=== PATIENT | female | born 1960 | race Caucasian/White ===

== ENCOUNTER → 2016-07-22 | Outpatient (CLI) | payer BC ==
--- NOTE | 2016-07-23 07:46 | MM ---
Reason for exam: screening (asymptomatic). Last mammogram was performed 4 years and 6 months ago. History: Patient is postmenopausal. Family history of breast cancer in aunt. Physical Findings: A clinical breast exam by your physician is recommended on an annual basis and results should be correlated with mammographic findings. MG Screening Mammo w CAD Bilateral CC and MLO view(s) were taken. Prior study comparison: January 22, 2012, mammogram, performed at [facility]. January 20, 2011, mammogram, performed at [facility]. The breast tissue is extremely dense which could obscure a lesion on mammography. There is chronic nodularity bilaterally. There is no dominant lesion. No significant changes when compared with prior studies. ASSESSMENT: Benign, BI-RAD 2 RECOMMENDATION: Routine screening mammogram of both breasts in 1 year.
== END | disposition home or self-care (01) ==
LOC: RADMAMWWP 07:58
PROVIDERS: ATTEND Family Medicine
DX: Z12.31 Encounter for screening mammogram for malignant neoplasm of breast (principal)

== ENCOUNTER 2016-09-19 00:30 | Emergency (ER) | payer BC ==
[2016-09-19] MEDS ORDERED: KETOROLAC 30 MG/ML 1 ML VIAL IVP STA (00:45)
[2016-09-19] MEDS ORDERED: HYDROmorphone 1 MG/ML 1 ML SYRINGE IVP STA (00:45)
[2016-09-19] MEDS ORDERED: SODIUM CHLORIDE 0.9% 1,000 ML IV STA ×2 (00:45)
[2016-09-19] MEDS ORDERED: ONDANSETRON 4 MG/2 ML VIAL IVP STA (00:45)
[2016-09-19 01:18] LABS: Basophils % (A) 0 %; CH 30.6; CHCM 34.1; Eosinophils # (A) 0.2 k/uL (0-0.7); Eosinophils % (A) 2 %; HCT 42.5 % (34.0-46.0); HDW 2.23; HGB 14.1 gm/dL (11.4-16.0); Luc # (Auto) 0.31; Luc % (Auto) 3; Lymphocytes # (A) 3.2 k/uL (1.0-4.8); Lymphocytes % (A) 31 %; MCH 29.8 pg (25.0-35.0); MCHC 33.2 g/dL (31.0-37.0); Mean Platelet Volume 6.8; Monocytes # (A) 0.5 k/uL (0-1.0); Monocytes % (A) 4 %; Neutrophils # (A) 6.2 k/uL (1.3-7.7); Neutrophils % (A) 60 %; RBC 4.72 m/uL (3.80-5.40); RDW 12.9 % (11.5-15.5); WBC 10.3 k/uL (3.8-10.6); WBC (Perox) 10.39
[2016-09-19 01:22] LABS: ALT 29 U/L (9-52); AST 21 U/L (14-36); Alkaline Phosphatase 62 U/L (38-126); Amylase 79 U/L (30-110); Anion Gap 10 mmol/L; Blood Urea Nitrogen 22 mg/dL (7-17); Calcium 9.9 mg/dL (8.4-10.2); Carbon Dioxide 23 mmol/L (22-30); Chloride 108 mmol/L (98-107); Glucose 123 mg/dL (74-99); Non-African American GFR(MDRD) >60 (>60 ml/min/1.73 sqM); Potassium 4.3 mmol/L (3.5-5.1); Sodium 141 mmol/L (137-145); Total Bilirubin 0.9 mg/dL (0.2-1.3); Total Protein 6.8 g/dL (6.3-8.2)
--- NOTE | 2016-09-19 01:29 | XR ---
EXAM: XR Abdomen Complete, 2 or More Views CLINICAL HISTORY: Reason: abdominal pain TECHNIQUE: Frontal view of the abdomen/pelvis with upright view of the abdomen. COMPARISON: No relevant prior studies available. FINDINGS: Intraperitoneal space: No free air. Gastrointestinal tract: Unremarkable. No dilation. Bones/joints: Unremarkable. Other findings: Possible hepatomegaly. IMPRESSION: Possible hepatomegaly.
--- NOTE | 2016-09-19 01:33 | ED ---
Abdominal Pain HPI - General Chief Complaint: Abdominal Pain Stated Complaint: side pain Time Seen by Provider: 09/19/16 00:37 Source: patient Mode of arrival: wheelchair Limitations: no limitations - History of Present Illness Initial Comments: Is a 56-year-old female presents to emergency department with the chief complaint of acute onset of left flank pain this evening. Patient reports she' s had occasional pains for the past few days however it became severe this evening. Patient states that she did vomit once due to the pain. Patient states that she has no significant past medical history and surgical history. She does have high cholesterol however. Patient reports that she has been having normal urination and bowel movements. Denies any blood in her urine. Patient states she's had no recent fever or chills. Denies any chest pain or shortness of breath. Patient reports that the pain starts in the left flank and radiates towards her groin. - Related Data Previous Rx's Medication Instructions Recorded Ciprofloxacin HCl [Cipro] 500 mg PO Q12HR #10 tablet 09/19/16 HYDROcodone/APAP 10-325MG [[place] 1 tab PO Q6H PRN #15 tab 09/19/16 10-325] Ketorolac [Toradol] 10 mg PO Q6HR #12 tab 09/19/16 Allergies Allergy/AdvReac Type Severity Reaction Status Date / Time No Known Allergies Allergy Verified 09/19/16 00:35 Review of Systems ROS Statement: Those systems with pertinent positive or pertinent negative responses have been documented in the HPI. ROS Other: All systems not noted in ROS Statement are negative. Past Medical History Past Medical History: No Reported History History of Any Multi-Drug Resistant Organisms: None Reported Past Surgical History: No Surgical Hx Reported Past Psychological History: No Psychological Hx Reported Smoking Status: Former smoker Past Alcohol Use History: None Reported Past Drug Use History: Marijuana General Exam - General Exam Comments Initial Comments: This is a 56-year-old female. Patient appears to be in significant pain. Limitations: no limitations General appearance: alert, in no apparent distress Head exam: Present: atraumatic, normocephalic, normal inspection Eye exam: Present: normal appearance, PERRL, EOMI. Absent: scleral icterus, conjunctival injection, periorbital swelling ENT exam: Present: normal exam, mucous membranes moist Neck exam: Present: normal inspection. Absent: tenderness, meningismus, lymphadenopathy Respiratory exam: Present: normal lung sounds bilaterally. Absent: respiratory distress, wheezes, rales, rhonchi, stridor Cardiovascular Exam: Present: regular rate, normal rhythm, normal heart sounds. Absent: systolic murmur, diastolic murmur, rubs, gallop, clicks GI/Abdominal exam: Present: soft, tenderness (CVA tenderness.), normal bowel sounds, other (Flank pain). Absent: distended, guarding, rebound, rigid Extremities exam: Present: normal inspection, full ROM, normal capillary refill. Absent: tenderness, pedal edema, joint swelling, calf tenderness Back exam: Present: normal inspection, CVA tenderness (L) Neurological exam: Present: alert, oriented X3, CN II-XII intact Psychiatric exam: Present: normal affect, normal mood Skin exam: Present: warm, dry, intact, normal color. Absent: rash Course Vital Signs 09/19/16 09/19/16 00:33 01:45 Temperature 97.7 F Pulse Rate 65 Respiratory 20 16 Rate Blood Pressure 173/77 124/64 O2 Sat by Pulse 100 Oximetry Medical Decision Making - Medical Decision Making Is a 56-year-old female presents to emergency department with the chief complaint of acute onset of left flank pain this evening. Patient reports she' s had occasional pains for the past few days however it became severe this evening. Patient states that she did vomit once due to the pain. Patient states that she has no significant past medical history and surgical history. She does have high cholesterol however. Patient reports that she has been having normal urination and bowel movements. Denies any blood in her urine. Patient states she's had no recent fever or chills. Denies any chest pain or shortness of breath. Patient reports that the pain starts in the left flank and radiates towards her groin. His lab work was reviewed. Patient does have mildly elevated lipase. Patient' s urinalysis just shows some amount of red blood cells consistent with a kidney stone. Patient CT abdomen and pelvis without contrast for further evaluation. Patient was reevaluated and does feel much improved after pain medications. CT abdomen and pelvis shows Mild left hydronephrosis with a 2.3 mm proximal ureteral calculus. Bilateral intrarenal colliculi seen measuring up to 2.5 mm on the right. Evidence of cholelithiasis. Mild hepatomegaly. Patient is informed of these results. Urine culture will be obtained. Patient will be discharged with pain medication and antibiotics for the renal stones. Patient agrees to treatment plan will comply. Return parameters were discussed. Discussed follow-up with primary care provider as well as urologist. - Lab Data Result diagrams: 09/19/16 00:47 09/19/16 00:47 Lab Results 09/19/16 09/19/16 09/19/16 Range/Units 00:47 00:47 01:03 WBC 10.3 (3.8-10.6) k/uL RBC 4.72 (3.80-5.40) m/uL Hgb 14.1 (11.4-16.0) gm/dL Hct 42.5 (34.0-46.0) % MCV 90.0 (80.0-100.0) fL MCH 29.8 (25.0-35.0) pg MCHC 33.2 (31.0-37.0) g/dL RDW 12.9 (11.5-15.5) % Plt Count 238 (150-450) k/uL Neutrophils % 60 % Lymphocytes % 31 % Monocytes % 4 % Eosinophils % 2 % Basophils % 0 % Neutrophils # 6.2 (1.3-7.7) k/uL Lymphocytes # 3.2 (1.0-4.8) k/uL Monocytes # 0.5 (0-1.0) k/uL Eosinophils # 0.2 (0-0.7) k/uL Basophils # 0.0 (0-0.2) k/uL Sodium 141 (137-145) mmol/L Potassium 4.3 (3.5-5.1) mmol/L Chloride 108 H (98-107) mmol/L Carbon Dioxide 23 (22-30) mmol/L Anion Gap 10 mmol/L BUN 22 H (7-17) mg/dL Creatinine 0.60 (0.52-1.04) mg/dL Est GFR (MDRD) Af Amer >60 (>60 ml/min/1.73 sqM) Est GFR (MDRD) Non-Af >60 (>60 ml/min/1.73 sqM) Glucose 123 H (74-99) mg/dL Calcium 9.9 (8.4-10.2) mg/dL Total Bilirubin 0.9 (0.2-1.3) mg/dL AST 21 (14-36) U/L ALT 29 (9-52) U/L Alkaline Phosphatase 62 (38-126) U/L Total Protein 6.8 (6.3-8.2) g/dL Albumin 4.3 (3.5-5.0) g/dL Amylase 79 (30-110) U/L Lipase 324 H (23-300) U/L Urine Color Yellow Urine Appearance Cloudy H (Clear) Urine pH 5.5 (5.0-8.0) Ur Specific [place] 1.014 (1.001-1.035) Urine Protein 1+ H (Negative) Urine Glucose (UA) Negative (Negative) Urine Ketones Negative (Negative) Urine Blood Large H (Negative) Urine Nitrite Negative (Negative) Urine Bilirubin Negative (Negative) Urine Urobilinogen <2.0 (<2.0) mg/dL Ur Leukocyte Esterase Small H (Negative) Urine RBC >182 H (0-5) /hpf Urine WBC 14 H (0-5) /hpf Urine WBC Clumps Rare H (None) /hpf Ur Squamous Epith Cells 15 H (0-4) /hpf Urine Bacteria Occasional H (None) /hpf Hyaline Casts 1 (0-2) /lpf Urine Mucus Occasional H (None) /hpf - Radiology Data Radiology results: report reviewed Mild left hydronephrosis with a 2.3 mm proximal ureteral calculus. Bilateral intrarenal colliculi seen measuring up to 2.5 mm on the right. Evidence of cholelithiasis. Mild hepatomegaly. Disposition Clinical Impression: Left ureteral stone Disposition: HOME SELF-CARE Condition: Good Instructions: Ureteral Stones (ED) Additional Instructions: Patient has to rest, increase fluids. Follow-up with primary care provider and urologist. Return to emergency department if any alarming signs or symptoms occur. Take medications as prescribed. Prescriptions: Ciprofloxacin HCl [Cipro] 500 mg PO Q12HR #10 tablet HYDROcodone/APAP 10-325MG [[place] 10-325] 1 tab PO Q6H PRN #15 tab PRN Reason: Pain Ketorolac [Toradol] 10 mg PO Q6HR #12 tab Referrals: López Hamm MD [Primary Care Provider] - 1-2 days Time of Disposition: 02:33
[2016-09-19 01:36] LABS: Appearance,Urine Cloudy (Clear); Bacteria,Urine Occasional /hpf; Bilirubin,Urine Negative (Negative); Glucose,Urine (UA) Negative (Negative); Ketones,Urine Negative (Negative); Leukocyte Esterase,Urine Small (Negative); Mucus,Urine Occasional /hpf; Nitrite,Urine Negative (Negative); PH, Urine 5.5 (5.0-8.0); Particle Count 9192; Protein,Urine 1+ (Negative); RBC,Urine >182 /hpf (0-5); Specific Gravity,Urine 1.014 (1.001-1.035); Squamous Epithelial Cell,Urine 15 /hpf (0-4); UA Billing (MACRO vs. MICRO) MICRO; Urobilinogen,Urine <2.0 mg/dL (<2.0); WBC,Urine 14 /hpf (0-5)
[2016-09-19 01:46] VITALS: RESP 16
--- NOTE | 2016-09-19 02:29 | CT ---
EXAM: CT Abdomen and Pelvis Without Intravenous Contrast CLINICAL HISTORY: Reason: Pain TECHNIQUE: Axial computed tomography images of the abdomen and pelvis without intravenous contrast. CTDI is 4.6 mGy and DLP is 205.5 mGy-cm. This CT exam was performed using one or more of the following dose reduction techniques: automated exposure control, adjustment of the mA and/or kV according to patient size, and/or use of iterative reconstruction technique. Coronal and sagittal reformatted images were created and reviewed. COMPARISON: Abdominal radiograph performed earlier. Ultrasound dated 07/31/11 FINDINGS: Lower thorax: No acute findings. ABDOMEN: Liver: Mild hepatomegaly. Gallbladder and bile ducts: Cholelithiasis. Pancreas: Unremarkable. No ductal dilation. Spleen: Unremarkable. No splenomegaly. Adrenals: Unremarkable. No mass. Kidneys and ureters: Mild left hydronephrosis with a 2.3 mm proximal ureteral calculus. Bilateral intrarenal calculi are seen measuring up to 2.5 mm on the right. Stomach and bowel: Unremarkable. No obstruction. No mucosal thickening. Appendix: No findings to suggest acute appendicitis. PELVIS: Bladder: Unremarkable. No stones. Reproductive: Unremarkable as visualized. ABDOMEN and PELVIS: Intraperitoneal space: Unremarkable. No free air. No significant fluid collection. Bones/joints: Sacralization of L5. Degenerative disc bulges of L3/L4 and L4/L5. No acute fracture. No dislocation. Soft tissues: Unremarkable. Vasculature: Extensive atherosclerosis of aorta. No abdominal aortic aneurysm. Lymph nodes: Unremarkable. No enlarged lymph nodes. IMPRESSION: 1. Mild left hydronephrosis with a 2.3 mm proximal ureteral calculus. 2. Bilateral intrarenal calculi are seen measuring up to 2.5 mm on the right. 3. Cholelithiasis. 4. Mild hepatomegaly.
[2016-09-19 02:54] VITALS: BP 126/76; PULSE 71; TEMP 97
== END 2016-09-19 02:53 | disposition home or self-care (01) ==
LOC: EC 00:30
DX: N13.2 Hydronephrosis with renal and ureteral calculous obstruction (principal); K80.20 Calculus of gallbladder without cholecystitis without obstruction; R16.0 Hepatomegaly, not elsewhere classified; R74.8 Abnormal levels of other serum enzymes; E78.00 Pure hypercholesterolemia, unspecified; R11.10 Vomiting, unspecified; Z87.891 Personal history of nicotine dependence
CPT/HCPCS: 36415; 80053; 82150; 83690; 85025; 81001; 74000; 74176; 99284; 96374; 96375; 96361 ×2; J2405; J1885

== ENCOUNTER → 2018-01-25 | Outpatient (CLI) | payer BC ==
--- NOTE | 2018-01-25 10:37 | ECHOS ---
STRESS ECHOCARDIOGRAM DATE OF SERVICE: 01/25/2018 INDICATIONS: Chest pain. MEDICATIONS: Pravastatin, aspirin. BASELINE HEART RATE: 87 BASELINE BLOOD PRESSURE: 155/63 MAXIMUM HEART RATE: 153 MAXIMUM BLOOD PRESSURE: 209/68 85% MPHR: 137 100% MPHR: 161 METS: 8.7 MAXIMUM STAGE REACHED: III TOTAL EXERCISE TIME: 7 minutes 15 seconds CLINICAL INFORMATION: The patient has chest pain. Baseline heart rate 87 beats per minute. Baseline blood pressure 155/63 mmHg. Baseline ECG shows normal sinus rhythm with a 0.[address] depression in baseline. Patient exercised on Waldemar protocol for 7 minutes 15 seconds achieving a peak heart rate of 153 beats per minute. Mildly hypertensive response to exercise. Peak blood pressure 209/68 mmHg. There was no ECG evidence for ischemia. No arrhythmias were noted. Baseline 2D echo images showed normal LV size and systolic function without segmental wall motion abnormalities. At peak exercise, there was excellent augmentation to overall contractility without developing any wall motion abnormalities. At recovery, regional global LV systolic function remains normal. IMPRESSION: No ECG or echocardiographic evidence for ischemia. Mildly hypertensive response to exercise. Average exercise capacity. MMODL / IJN: [id number] /
== END | disposition home or self-care (01) ==
LOC: RADNMMAIN 09:01
PROVIDERS: ATTEND Family Medicine
DX: R07.9 Chest pain, unspecified (principal)
CPT/HCPCS: 93351

== ENCOUNTER → 2018-01-28 | Outpatient (CLI) | payer BC ==
--- NOTE | 2018-01-29 07:12 | US ---
EXAMINATION TYPE: US transvaginal DATE OF EXAM: 01/28/2018 COMPARISON: CT 2017 CLINICAL HISTORY: N95.0 Post menopausal bleeding. 1 episode of bleeding 3 weeks ago, occasional pelvi c cramping, 3, para 1, 2. TECHNIQUE: Transvaginal exam only per ordering physician. Date of LMP: 10 years ago EXAM MEASUREMENTS: Uterus: 4.7 x 2.5 x 3.8 cm Endometrial Stripe: 0.4 cm Right Ovary: not seen Left Ovary: not seen 1. Uterus: anteverted, heterogeneous with 1.4 x 1.4 x 1.6cm hypoechoic lesion posterior lower uterin e segment, possible fibroid 2. Endometrium: wnl 3. Right Ovary: not seen due to overlying peristalsing bowel 4. Left Ovary: not seen due to overlying peristalsing bowel 5. Bilateral Adnexa: wnl 6. Posterior cul-de-sac: wnl IMPRESSION: 1. Leiomyomatous change of the uterus.
== END | disposition home or self-care (01) ==
LOC: RADUSWWP 15:22
PROVIDERS: ATTEND Family Medicine
DX: R93.41 Abnormal radiologic findings on diagnostic imaging of renal pelvis, ureter, or bladder (principal); N95.0 Postmenopausal bleeding
CPT/HCPCS: 76830

== ENCOUNTER → 2018-01-28 | Outpatient (CLI) | payer BC ==
--- NOTE | 2018-02-01 09:14 | MM ---
Reason for exam: screening (asymptomatic). Last mammogram was performed 1 year and 6 months ago. History: Patient is postmenopausal. Family history of breast cancer in aunt. Took hormonal contraceptives for 30 years. Took estrogen for 1 year. Took progesterone for 1 year. Physical Findings: A clinical breast exam by your physician is recommended on an annual basis and results should be correlated with mammographic findings. MG Screening Mammo w CAD Bilateral CC and MLO view(s) were taken. Prior study comparison: July 22, 2016, bilateral MG screening mammo w CAD. January 22, 2012, mammogram, performed at [facility]. The breast tissue is extremely dense which could obscure a lesion on mammography. Focal asymmetry may be keratosis, need to check this area right lower MLO. ASSESSMENT: Incomplete: need additional imaging evaluation, BI-RAD 0 RECOMMENDATION: Special view mammogram of the right breast. If lesion persists on supplemental views, image directed ultrasound is recommended. [facility] will attempt to contact patient to return for supplemental views and ultrasound if indicated.
== END ==
LOC: RADMAMWWP 15:19
PROVIDERS: ATTEND Family Medicine
DX: Z12.31 Encounter for screening mammogram for malignant neoplasm of breast (principal)
CPT/HCPCS: 77067

== ENCOUNTER 2019-05-23 09:05 | Inpatient (IN) | payer BC ==
[2019-05-23] MEDS ORDERED: SODIUM CHLORIDE 0.9% 500 ML 500 ML IV STA (09:21)
[2019-05-23] MEDS ORDERED: MORPHINE SULFATE 4 MG/ML SYRINGE IVP STA (09:29)
[2019-05-23] MEDS ORDERED: PANTOPRAZOLE 40 MG/10 ML VIAL IVP STA (09:30)
--- NOTE | 2019-05-23 09:35 | ED ---
GI Bleed HPI - General Chief complaint: GI Bleed Stated complaint: Abdominal Pain Time Seen by Provider: 05/23/19 09:21 Source: patient Mode of arrival: wheelchair Limitations: no limitations - History of Present Illness Initial comments: 58 year female presenting today for chief complaint of lower abdominal pain bloody stool x 2 days. Patient states that she has had diarrhea vomiting chills since Thursday. She states she initially thought she had a 24-hour "flu". Patient states the symptoms persisted today she has had multiple episodes of bloody stools. Patient states it is bright red. Patient does have history of hemorrhoids. Patient denies any pain at the rectum. Patient denies any chest pain short of breath cold intolerance. Patient denies recording a fever at home. Patient denies any specific food ingestions she denies recent trauma. Patient has a history of Crohn's or ulcerative colitis. Upon arrival patient appears uncomfortable. Blood pressure stable, afebrile. - Related Data Previous Rx's Medication Instructions Recorded Ciprofloxacin HCl [Cipro] 500 mg PO Q12HR #10 tablet 09/19/16 HYDROcodone/APAP 10-325MG [[place] 1 tab PO Q6H PRN #15 tab 09/19/16 10-325] Ketorolac [Toradol] 10 mg PO Q6HR #12 tab 09/19/16 Allergies Allergy/AdvReac Type Severity Reaction Status Date / Time No Known Allergies Allergy Verified 09/19/16 00:35 Review of Systems ROS Statement: Those systems with pertinent positive or pertinent negative responses have been documented in the HPI. ROS Other: All systems not noted in ROS Statement are negative. Past Medical History Past Medical History: No Reported History History of Any Multi-Drug Resistant Organisms: None Reported Past Surgical History: No Surgical Hx Reported Past Psychological History: No Psychological Hx Reported Smoking Status: Former smoker Past Alcohol Use History: Rare Past Drug Use History: Marijuana General Exam - General Exam Comments Initial Comments: General: The patient is awake and alert, appears uncomforable but not writhing around in pain Eye: Pupils are equal, round and reactive to light, extra-ocular movements are intact. No nystagmus. There is normal conjunctiva bilaterally. No signs of icterus. Ears, nose, mouth and throat: There are moist mucous membranes and no oral lesions. Neck: The neck is supple, there is no tenderness or JVD. Cardiovascular: There is a regular rate and rhythm. No murmur, rub or gallop is appreciated. Respiratory: Lungs are clear to auscultation, respirations are non-labored, breath sounds are equal. No wheezes, stridor, rales, or rhonchi. Gastrointestinal: Soft, non-distended, diffuse tenderness to the lower aspect of the abdomen mostly midline remaining abdomen nontender without masses or organomegaly noted. There is no rebound or guarding present. Rectal: :Large external hemorrhoid at the 10 oclock position. [place]. No bright re d blood per rectum. Small amount of light brown stool. Musculoskeletal: Normal ROM, no tenderness. Strength 5/5. Sensation intact. Radial pulses equal bilaterally 2+. Neurological: A&O x 3. CN II-XII intact grossly, There are no obvious motor or sensory deficits. Coordination appears grossly intact. Speech is normal. Skin: Skin is warm and dry and no rashes or lesions are noted. Psychiatric: Cooperative, appropriate mood & affect, normal judgment. Limitations: no limitations Course Vital Signs 05/23/19 05/23/19 09:18 09:44 Temperature 98.3 F Pulse Rate 89 75 Respiratory 19 18 Rate Blood Pressure 169/84 149/86 O2 Sat by Pulse 98 98 Oximetry Medical Decision Making - Medical Decision Making 58-year-old female presenting for nausea vomiting diarrhea or bloody stools. Ongoing since Thursday. Patient hemodynamically stable hemoglobin stable no bright red blood per rectum positive. Patient has significant leukocytosis as well as elevation of lactic acid patient was given IV fluids started on Zosyn and blood cultures obtained. CT revealed diffuse inflammation of the colon different diagnosis includes infectious or inflammatory process. At this time will admit patient for GI consultation and further evaluation. Discussed case with Dr. Macedo who is agreeable to care plan and admission at this time. Discussed findings with Dr. Macedo who is agreeable to care plan and evaluated patient in person. - Lab Data Result diagrams: 05/23/19 09:30 05/23/19 09:30 Lab Results 05/23/19 05/23/19 05/23/19 Range/Units 09:30 09:30 09:30 WBC 19.5 H (3.8-10.6) k/uL RBC 5.16 (3.80-5.40) m/uL Hgb 14.5 (11.4-16.0) gm/dL Hct 45.4 (34.0-46.0) % MCV 87.9 (80.0-100.0) fL MCH 28.1 (25.0-35.0) pg MCHC 32.0 (31.0-37.0) g/dL RDW 12.8 (11.5-15.5) % Plt Count 291 (150-450) k/uL Neutrophils % 86 % Lymphocytes % 8 % Monocytes % 3 % Eosinophils % 1 % Basophils % 0 % Neutrophils # 16.8 H (1.3-7.7) k/uL Lymphocytes # 1.6 (1.0-4.8) k/uL Monocytes # 0.7 (0-1.0) k/uL Eosinophils # 0.2 (0-0.7) k/uL Basophils # 0.0 (0-0.2) k/uL APTT (22.0-30.0) sec Sodium 140 (137-145) mmol/L Potassium 4.1 (3.5-5.1) mmol/L Chloride 107 (98-107) mmol/L Carbon Dioxide 21 L (22-30) mmol/L Anion Gap 12 mmol/L BUN 24 H (7-17) mg/dL Creatinine 0.60 (0.52-1.04) mg/dL Est GFR (CKD-EPI)AfAm >90 (>60 ml/min/1.73 sqM) Est GFR (CKD-EPI)NonAf >90 (>60 ml/min/1.73 sqM) Glucose 125 H (74-99) mg/dL Plasma Lactic Acid Abdiaziz 2.2 H* (0.7-2.0) mmol/L Calcium 9.7 (8.4-10.2) mg/dL Total Bilirubin 1.2 (0.2-1.3) mg/dL AST 32 (14-36) U/L ALT 17 (4-34) U/L Alkaline Phosphatase 74 (38-126) U/L Total Protein 7.0 (6.3-8.2) g/dL Albumin 4.2 (3.5-5.0) g/dL Stool Occult Blood (Negative) Blood Type Blood Type Recheck Bld Type Recheck Status Antibody Screen Spec Expiration Date 05/23/19 05/23/19 05/23/19 Range/Units 09:30 09:30 09:30 WBC (3.8-10.6) k/uL RBC (3.80-5.40) m/uL Hgb (11.4-16.0) gm/dL Hct (34.0-46.0) % MCV (80.0-100.0) fL MCH (25.0-35.0) pg MCHC (31.0-37.0) g/dL RDW (11.5-15.5) % Plt Count (150-450) k/uL Neutrophils % % Lymphocytes % % Monocytes % % Eosinophils % % Basophils % % Neutrophils # (1.3-7.7) k/uL Lymphocytes # (1.0-4.8) k/uL Monocytes # (0-1.0) k/uL Eosinophils # (0-0.7) k/uL Basophils # (0-0.2) k/uL APTT 22.3 (22.0-30.0) sec Sodium (137-145) mmol/L Potassium (3.5-5.1) mmol/L Chloride (98-107) mmol/L Carbon Dioxide (22-30) mmol/L Anion Gap mmol/L BUN (7-17) mg/dL Creatinine (0.52-1.04) mg/dL Est GFR (CKD-EPI)AfAm (>60 ml/min/1.73 sqM) Est GFR (CKD-EPI)NonAf (>60 ml/min/1.73 sqM) Glucose (74-99) mg/dL Plasma Lactic Acid Abdiaziz (0.7-2.0) mmol/L Calcium (8.4-10.2) mg/dL Total Bilirubin (0.2-1.3) mg/dL AST (14-36) U/L ALT (4-34) U/L Alkaline Phosphatase (38-126) U/L Total Protein (6.3-8.2) g/dL Albumin (3.5-5.0) g/dL Stool Occult Blood Positive H (Negative) Blood Type O Positive Blood Type Recheck No Previous Record Bld Type Recheck Status CABO Indicated Antibody Screen NEGATIVE Spec Expiration Date 05/26/2019 - 2329 Disposition Clinical Impression: Colitis, Abdominal pain, Leukocytosis, Diarrhea, Bloody stools Disposition: ADMITTED IP TO THIS HOSP Condition: Stable Is patient prescribed a controlled substance at d/c from ED?: No Referrals: López Hamm MD [Primary Care Provider] - 1-2 days Time of Disposition: 10:46 Decision to Admit Reason: Admit from EC Decision Date: 05/23/19 Decision Time: 10:46
[2019-05-23] MEDS: SODIUM CHLORIDE 0.9% 1,000 ML IV SCH ×2 (09:40→20:45)
[2019-05-23 09:59] LABS: Basophils % (A) 0 %; Eosinophils # (A) 0.2 k/uL (0-0.7); Eosinophils % (A) 1 %; HCT 45.4 % (34.0-46.0); HGB 14.5 gm/dL (11.4-16.0); Lymphocytes # (A) 1.6 k/uL (1.0-4.8); Lymphocytes % (A) 8 %; MCH 28.1 pg (25.0-35.0); MCV 87.9 fL (80.0-100.0); Mean Platelet Volume 7.3; Monocytes # (A) 0.7 k/uL (0-1.0); Monocytes % (A) 3 %; Neutrophils # (A) 16.8 k/uL (1.3-7.7); Neutrophils % (A) 86 %; Platelet Count 291 k/uL (150-450); RBC 5.16 m/uL (3.80-5.40); RDW 12.8 % (11.5-15.5); WBC 19.5 k/uL (3.8-10.6)
[2019-05-23 10:11] LABS: ALT 17 U/L (4-34); AST 32 U/L (14-36); African American GFR (CKD) >90 (>60 ml/min/1.73 sqM); Albumin 4.2 g/dL (3.5-5.0); Alkaline Phosphatase 74 U/L (38-126); Anion Gap 12 mmol/L; Blood Urea Nitrogen 24 mg/dL (7-17); Calcium 9.7 mg/dL (8.4-10.2); Carbon Dioxide 21 mmol/L (22-30); Chloride 107 mmol/L (98-107); Glucose 125 mg/dL (74-99); Non-African American GFR(CKD) >90 (>60 ml/min/1.73 sqM); Potassium 4.1 mmol/L (3.5-5.1); Sodium 140 mmol/L (137-145); Total Bilirubin 1.2 mg/dL (0.2-1.3)
--- NOTE | 2019-05-23 10:36 | CT ---
EXAMINATION TYPE: CT abdomen pelvis w con DATE OF EXAM: 05/23/2019 COMPARISON: 09/19/2016 HISTORY: lower midline tenderness, bloody stools CT DLP: 570.4 mGycm CONTRAST: CT scan of the abdomen and pelvis is performed without Oral Contrast and with IV Contrast, patient in jected with 100 mL of Isovue 300. FINDINGS: LUNG BASES-: No visible nodule. No infiltrate. LIVER/GB: Layering gallstones noted. Heterogenous enhancement of the liver felt to reflect a degree of underlying hepatic steatosis mild compatible megaly. No space occupying hepatic lesion. Biliary tree is of normal caliber. PANCREAS: No inflammation. No distinct mass. SPLEEN: No splenic enlargement. No lesion seen. ADRENALS: No nodule. No thickening. KIDNEYS/BLADDER: Nonobstructing nephrolithiasis identified. Small renal cortical cysts evident. Urina ry bladder grossly unremarkable. BOWEL: There is contiguous wall thickening involving the colon extending from the mid transverse colo n through the sigmoid colon. The findings are likely on the basis of infectious or inflammatory colit is. Vascular causes felt to be less likely. No evidence for perforation or abscess. Normal appendix v isualized. GENITAL ORGANS: No gross abnormality. LYMPH NODES: No greater than 1cm abdominal or pelvic lymph nodes are appreciated. AORTA: No significant abnormality. OSSEOUS STRUCTURES: No significant abnormality is seen. OTHER: Small amount of free fluid seen within the pelvis. IMPRESSION: 1. Continuous wall thickening involving the colon extending from the mid transverse colon through the sigmoid colon. The findings are likely on the basis of infectious or inflammatory colitis.
[2019-05-23] MEDS ORDERED: SODIUM CHLORIDE 0.9% 1,000 ML IV ONE (10:38)
[2019-05-23] MEDS ORDERED: PIPERACILLIN-TAZOBACTAM 3.375 GM in SODIUM CHLORIDE 0.9% 100 ML IVPB STA (10:40)
[2019-05-23] MEDS ORDERED: NALOXONE 0.4 MG/ML 1 ML VIAL IV PRN (11:00)
--- NOTE | 2019-05-23 13:22 | P.HPIM ---
History of Present Illness H&P Date: 05/23/19 Chief Complaint: abd pain 58-year-old female with history of hypertension controlled without medications. Patient comes in due to acute onset abdominal pain. Started as generalized symptoms of feeling sick 2 days ago at all started at Thursday night with few episodes of diarrhea and vomiting she thought it might be related to food however yesterday on Thursday symptoms continued all day she felt very sick and tired she slept all day couldn't do anything continued to have repeated vomiting and diarrhea if she tries to drink or eat anything so she had very poor by mouth intake. This was associated with lower abdominal pain mainly in the suprapubic region rated as 10 out of 10 in severity coming in episodes lasting few minutes at a time and then eases down there is no specific aggravating or alleviating factor she never experienced anything like this before pain is not radiating. Denies any fevers or chills. Denies any coughing chest pain or trouble breathing. Denies any symptoms of upper respiratory infection. Yesterday she noticed that her bowel movement was having some streaks of blood. She denies any otherwise associated urinary symptoms. She denies any hematemesis or melena. She reports that this has never happened before. She denies any recent traveling or any unsanitary food or drink. She denies taking any antibiotics recently. In the ED her hemoglobin was stable however white count was elevated computed tomography scan suggested colitis involving the transverse and descending colon all the way to the rectum. Patient admitted for IV antibiotics IV fluid hydration and GI evaluation Review of Systems Pertinent positives as noted in HPI. All other systems were reviewed and are negative Past Medical History Past Medical History: No Reported History History of Any Multi-Drug Resistant Organisms: None Reported Past Surgical History: No Surgical Hx Reported Past Psychological History: No Psychological Hx Reported Smoking Status: Former smoker Past Alcohol Use History: Rare Past Drug Use History: Marijuana - Past Family History Father Family Medical History: No Reported History Additional Family Medical History / Comment(s): Father is healthy Mother Additional Family Medical History / Comment(s): Mother at the age of 42 yrs, pt believes from opiod addiction/ETOH abuse. Medications and Allergies Home Medications Medication Instructions Recorded Confirmed Type Multivitamins, Thera [Multivitamin 1 tab PO DAILY 05/23/19 05/23/19 History (formulary)] Pravastatin Sodium [Pravachol] 20 mg PO DAILY 05/23/19 05/23/19 History Allergies Allergy/AdvReac Type Severity Reaction Status Date / Time No Known Allergies Allergy Verified 05/23/19 10:53 Physical Exam Vitals: Vital Signs Temp Pulse Resp BP Pulse Ox 05/23/19 09:44 75 18 149/86 98 05/23/19 09:18 98.3 F 89 19 169/84 98 Intake and Output 05/22/19 05/23/19 05/23/19 22:59 06:59 14:59 Other: Weight 55.792 kg Constitutional: No acute distress, conversant, pleasant Eyes: Anicteric sclerae, moist conjunctiva, no lid-lag Pupils equal round reactive to light ENMT: NC/AT Oropharynx clear, no erythema, exudates Neck: Supple, FROM, no masses, or JVD No carotid bruits No thyromegaly Lungs: Clear to auscultation Clear to percussion Normal respiratory effort, no accessory muscle use Cardiovascular: Heart regular in rate and rhythm, No murmurs, gallops, or rubs No peripheral edema Abdominal: Soft, tenderness to palpation over the suprapubic region with voluntary guarding no rigidity no rebound tenderness. No tenderness to tapping over the costovertebral angles Abdomen moving with respiration Sluggish bowel sounds No hepatomegaly, No splenomegaly No palpable mass No abdominal wall hernia noted Skin: Normal temperature, tone, texture, turgor No induration No subcutaneous nodules No rash, lesions No ulcers Extremities: No digital cyanosis No clubbing Pedal pulses intact and symmetrical Radial pulses intact and symmetrical No calf tenderness Psychiatric: Alert and oriented to person, place and time Appropriate affect fair judgment Neuro Muscles Strength 5/5 in all 4 extremities Sensation to light touch grossly present throughout Cranial nerves II-XII grossly intact No focal sensory deficits Lymphatics: no palpable cervical or supraclavicular , or inguinal lymph nodes Results CBC & Chem 7: 05/23/19 09:30 05/23/19 09:30 Labs: Abnormal Lab Results - Last 24 Hours (Table) 05/23/19 05/23/19 05/23/19 Range/Units 09:30 09:30 09:30 WBC 19.5 H (3.8-10.6) k/uL Neutrophils # 16.8 H (1.3-7.7) k/uL Carbon Dioxide 21 L (22-30) mmol/L BUN 24 H (7-17) mg/dL Glucose 125 H (74-99) mg/dL Plasma Lactic Acid Abdiaziz 2.2 H* (0.7-2.0) mmol/L Stool Occult Blood (Negative) 05/23/19 Range/Units 09:30 WBC (3.8-10.6) k/uL Neutrophils # (1.3-7.7) k/uL Carbon Dioxide (22-30) mmol/L BUN (7-17) mg/dL Glucose (74-99) mg/dL Plasma Lactic Acid Abdiaziz (0.7-2.0) mmol/L Stool Occult Blood Positive H (Negative) Assessment and Plan Assessment: 58-year-old female with history of hypertension controlled without medications. Comes in due to 2 day history of lower abdominal pain associated with repeated nausea vomiting and diarrhea associated with streaks of blood patient was found to have colitis admitted for further workup and GI evaluation. Anticipated length of stay more than 2 midnights Plan: Acute colitis unknown underlying cause rule out infectious versus inflammatory Leukocytosis GI consultation Follow-up cultures Patient started on empiric antibiotics Supportive care IV fluid hydration with normal saline Symptomatic control of pain nausea and vomiting Nothing by mouth PPI Lactic acidosis most likely secondary to dehydration and decreased perfusion Aggressive IV fluid hydration Follow-up lactic acid level DVT prophylaxis mechanical due to GI bleeding History of hypertension controlled without medications Currently with slightly elevated blood pressure most likely secondary to pain We'll continue to monitor closely CODE STATUS: Full code Discussed with: Patient, ER Anticipated length of stay more than [address]: Home A total of 60 minutes was spent on the care of this complex patient more than 50% of the time was spent in counseling and care coordination.
[2019-05-23] MEDS: MORPHINE SULFATE 4 MG/ML SYRINGE IVP PRN ×3 (13:41→21:56)
[2019-05-23] MEDS: ONDANSETRON 4 MG/2 ML VIAL IVP PRN (16:14)
[2019-05-23] MEDS: PANTOPRAZOLE 40 MG TABLET PO SCH (17:01)
[2019-05-23] MEDS: PIPERACILLIN-TAZOBACTAM 3.375 GM in SODIUM CHLORIDE 0.9% 100 ML IVPB SCH ×2 (17:02→23:50)
--- NOTE | 2019-05-23 22:44 | CONS ---
CONSULTATION DATE OF SERVICE: May 23. REASON FOR CONSULTATION: Abdominal pain and rectal bleeding. HISTORY OF PRESENT ILLNESS: The patient is a 58-year-old pleasant white female with a history of hypertension and hypercholesteremia, came to the emergency room complaining of severe abdominal pain associated with nausea and vomiting that started on Thursday night. She threw up a few times followed by severe lower abdominal cramping pain and yesterday morning had multiple episodes of bright red blood per rectum. She had at least 10 of these episodes and came to the emergency room early this morning. She did have a CT of the abdomen and pelvis done that showed thickening of the colon involving the mid transverse colon all the way to the sigmoid colon consistent with acute colitis. She was started on empiric IV Zosyn and being admitted to the hospital for further evaluation. She never had these symptoms in the past. No fever, chills, or night sweats. No family members having similar symptoms. She denies any recent antibiotic use. Denies any recent travel history. Never had a colonoscopy in the past, but she did have a colon test that was done 2 years ago that was negative. PAST MEDICAL HISTORY: Significant for hypertension, hyperlipidemia. MEDICATIONS: At home include pravastatin and multivitamin. ALLERGIES: No known drug allergies. SOCIAL HISTORY: No smoking. No alcohol use. FAMILY HISTORY: Unremarkable. REVIEW OF SYSTEMS: CARDIOPULMONARY: No chest pain or shortness of breath. GENITOURINARY: No dysuria or hematuria. MUSCULOSKELETAL unremarkable. SKIN unremarkable. ENDOCRINE unremarkable. PSYCHIATRIC unremarkable. NEUROLOGY unremarkable. ENT/vision unremarkable. CONSTITUTIONAL: No recent weight loss. No fever, chills, night sweats. Vital signs stable. PHYSICAL EXAMINATION: Blood pressure is 150/75, pulse is 72, temperature 99.1. HEENT: Examination unremarkable, conjunctivae are pink, sclerae anicteric. Oral cavity no lesions. NECK: No JVD or lymph node enlargement. CHEST: Clear to auscultation. HEART: Regular rate and rhythm. ABDOMEN: Soft, bowel sounds are positive. No organomegaly. There was tenderness in the left side of the abdomen, mostly in the left lower quadrant suprapubic area and left upper quadrant area. The rest of the abdomen was benign. Bowel sounds are positive. EXTREMITIES: No pedal edema. SKIN no rashes. NEUROLOGIC: Alert and oriented x3. No focal deficits. LABS: Done at the time of admission to the hospital: WBC 19.5, hemoglobin 14.5, platelets normal. Basic metabolic panel is within normal limits. Lactic acid is 2.2. Stool occult blood is positive. IMPRESSION: 1. Acute onset of severe nausea and vomiting with lower abdominal pain followed by bloody diarrhea of [address] scan showing thickening of the transverse colon, descending colon and sigmoid colon consistent with acute colitis symptoms. Her symptoms are very suggestive of an acute ischemic colitis, but possibility of infectious colitis cannot be excluded. She never had these symptoms in the past. 2. Lactic acidosis secondary to acute colitis. 3. Leukocytosis. RECOMMENDATIONS: 1. Clear liquid diet. 2. Continue with empiric antibiotics. 3. Stool studies and cultures. 4. Repeat labs in the morning. 5. No plans for any endoscopy intervention during this hospitalization, but once the symptoms are better, we will consider a colonoscopy in 2-3 weeks on an outpatient basis. The plan was discussed with the patient. She is agreeable to it. Thank you for this consultation. LOPEZ / NAHOMY: [id number] /
[2019-05-24] MEDS: SODIUM CHLORIDE 0.9% 1,000 ML IV SCH ×2 (04:41→16:51)
[2019-05-24] MEDS: MORPHINE SULFATE 4 MG/ML SYRINGE IVP PRN ×5 (04:59→21:01)
[2019-05-24] MEDS: ONDANSETRON 4 MG/2 ML VIAL IVP PRN (05:02)
[2019-05-24 08:28] LABS: Basophils % (A) 0 %; Eosinophils # (A) 0.1 k/uL (0-0.7); Eosinophils % (A) 1 %; HCT 35.3 % (34.0-46.0); Lymphocytes # (A) 1.2 k/uL (1.0-4.8); Lymphocytes % (A) 10 %; MCH 29.7 pg (25.0-35.0); MCHC 32.6 g/dL (31.0-37.0); MCV 91.2 fL (80.0-100.0); Mean Platelet Volume 7.3; Monocytes # (A) 0.6 k/uL (0-1.0); Monocytes % (A) 5 %; Neutrophils # (A) 10.3 k/uL (1.3-7.7); Neutrophils % (A) 84 %; Platelet Count 184 k/uL (150-450); RBC 3.87 m/uL (3.80-5.40); WBC 12.3 k/uL (3.8-10.6)
[2019-05-24 08:33] LABS: ALT 13 U/L (4-34); AST 23 U/L (14-36); African American GFR (CKD) >90 (>60 ml/min/1.73 sqM); Albumin 2.8 g/dL (3.5-5.0); Alkaline Phosphatase 51 U/L (38-126); Anion Gap 4 mmol/L; Blood Urea Nitrogen 18 mg/dL (7-17); Calcium 8.1 mg/dL (8.4-10.2); Carbon Dioxide 23 mmol/L (22-30); Chloride 110 mmol/L (98-107); Glucose 92 mg/dL (74-99); Non-African American GFR(CKD) >90 (>60 ml/min/1.73 sqM); Sodium 137 mmol/L (137-145); Total Bilirubin 0.8 mg/dL (0.2-1.3); Total Protein 5.1 g/dL (6.3-8.2)
[2019-05-24 08:34] LABS: HGB 11.5 gm/dL (11.4-16.0)
[2019-05-24] MEDS: PANTOPRAZOLE 40 MG TABLET PO SCH ×2 (08:42→16:54)
[2019-05-24] MEDS: PIPERACILLIN-TAZOBACTAM 3.375 GM in SODIUM CHLORIDE 0.9% 100 ML IVPB SCH ×2 (08:48→16:49)
--- NOTE | 2019-05-24 09:55 | P.PN ---
Subjective Progress Note Date: 05/24/19 Principal diagnosis: follow up for colitis and GI bleeding Patient seen and examined, still reporting lower abdominal pain rated 7 out of 10 in severity responding well to painkillers. Still reporting loose bowel movements with fresh blood components. Patient hemoglobin dropped by 3 g a component of dehydration and GI bleeding. Continue to monitor hemoglobin closely Tolerating by mouth intake Objective - Vital Signs Vital signs: Vital Signs Temp 98.3 F 05/24/19 08:22 Pulse 65 05/24/19 08:22 Resp 18 05/24/19 08:22 BP 130/73 05/24/19 08:22 Pulse Ox 95 05/24/19 08:22 Intake & Output 05/23/19 05/24/19 05/24/19 18:59 06:59 18:59 Intake Total 1880 Balance 1880 Weight 55.792 kg Intake: Intake, IV Titration 1000 Amount Piperacillin-Tazobactam 3 100 .375 gm In Sodium Chloride 0.9% 100 ml @ 25 mls/hr IVPB Q8HR [facility] Rx# :[id number] Sodium Chloride 0.9% 1, 900 000 ml @ 100 mls/hr IV . Q10H [facility] Rx#:[id number] Oral 880 Other: Voiding Method Toilet # Voids 2 # Bowel Movements 2 - Exam Constitutional: vital signs stable, Not in acute distress, pleasant, conversant Lungs: Clear to auscultation bilaterally, clear to percussion, normal respiratory effort Cardiovascular: Regular rate and rhythm, no murmurs, no gallops, no rubs, no peripheral edema Gastrointestinal: Soft, tenderness to palpation mainly over the suprapubic and left lower quadrant, no palpable hepatosplenomegally, bowel sounds positive Extremities: No digital cyanosis or clubbing, peripheral pulses palpable and equal , no calf muscle tenderness Psych: Alert, oriented to place, person and time, appropriate affect, intact judgment - Labs CBC & Chem 7: 05/24/19 07:31 05/24/19 07:31 Labs: Abnormal Lab Results - Last 24 Hours (Table) 05/23/19 05/23/19 05/23/19 Range/Units 09:30 09:30 09:30 WBC 19.5 H (3.8-10.6) k/uL Neutrophils # 16.8 H (1.3-7.7) k/uL Chloride (98-107) mmol/L Carbon Dioxide 21 L (22-30) mmol/L BUN 24 H (7-17) mg/dL Glucose 125 H (74-99) mg/dL Plasma Lactic Acid Abdiaziz 2.2 H* (0.7-2.0) mmol/L Calcium (8.4-10.2) mg/dL Total Protein (6.3-8.2) g/dL Albumin (3.5-5.0) g/dL Stool Occult Blood (Negative) 05/23/19 05/24/19 05/24/19 Range/Units 09:30 07:31 07:31 WBC 12.3 H (3.8-10.6) k/uL Neutrophils # 10.3 H (1.3-7.7) k/uL Chloride 110 H (98-107) mmol/L Carbon Dioxide (22-30) mmol/L BUN 18 H (7-17) mg/dL Glucose (74-99) mg/dL Plasma Lactic Acid Abdiaziz (0.7-2.0) mmol/L Calcium 8.1 L (8.4-10.2) mg/dL Total Protein 5.1 L (6.3-8.2) g/dL Albumin 2.8 L (3.5-5.0) g/dL Stool Occult Blood Positive H (Negative) Assessment and Plan Assessment: 58-year-old female with history of hypertension controlled without medications. Comes in due to 2 day history of lower abdominal pain associated with repeated nausea vomiting and diarrhea associated with streaks of blood patient was found to have colitis admitted for further workup and GI evaluation. Anticipated length of stay more than 2 midnights 05/24 Patient seen and examined, still reporting lower abdominal pain rated 7 out of 10 in severity responding well to painkillers. Still reporting loose bowel movements with fresh blood components. Patient hemoglobin dropped by 3 g a component of rehydration and GI bleeding. Continue to monitor hemoglobin closely Tolerating by mouth intake GI recommending OP Cscope in 2-3 weeks , differential infectious or ischemic colitis Plan: Acute colitis unknown underlying cause rule out infectious versus inflammatory vs transient ischemic Leukocytosis, improving , no fever GI following Follow-up cultures continue with empiric ABx Supportive care IV fluid hydration with normal saline Symptomatic control of pain nausea and vomiting clear liquid diet, advance as tolerated PPI Lactic acidosis most likely secondary to dehydration and decreased perfusion, resolved Aggressive IV fluid hydration DVT prophylaxis mechanical due to GI bleeding History of hypertension controlled without medications Currently with slightly elevated blood pressure most likely secondary to pain blood pressure is controlled now off medications anticipated discharge in 24-48 hours to home with OP GI follow up
[2019-05-24 14:20] LABS: Basophils % (A) 0 %; Eosinophils # (A) 0.2 k/uL (0-0.7); Eosinophils % (A) 1 %; HCT 36.5 % (34.0-46.0); HGB 11.6 gm/dL (11.4-16.0); Lymphocytes # (A) 2.1 k/uL (1.0-4.8); Lymphocytes % (A) 17 %; MCH 29.2 pg (25.0-35.0); MCHC 31.9 g/dL (31.0-37.0); MCV 91.5 fL (80.0-100.0); Mean Platelet Volume 7.3; Monocytes # (A) 0.5 k/uL (0-1.0); Monocytes % (A) 4 %; Neutrophils # (A) 9.6 k/uL (1.3-7.7); Neutrophils % (A) 76 %; Platelet Count 199 k/uL (150-450); RBC 3.99 m/uL (3.80-5.40); WBC 12.7 k/uL (3.8-10.6)
--- NOTE | 2019-05-24 17:00 | PN ---
PROGRESS NOTE DATE OF SERVICE: May 24, 2019. Patient is 58-year-old pleasant white female admitted to the hospital with onset of lower abdominal pain followed by bloody diarrhea of [address] A [address] scan of the abdomen showed left-sided colitis, possible infectious versus ischemic in nature. The patient today is feeling better; she continues to have lower abdominal pain. She had 2 bloody bowel movements today but small quantity. She denies any nausea or vomiting. No fever, chills, or night sweats. She is on a clear liquid diet, tolerating well. PHYSICAL EXAMINATION: On physical examination, she appears comfortable, no apparent distress. Vital signs are stable. Blood pressure is 115/66, pulse rate 64 and temperature 98. HEENT: Examination unremarkable. Conjunctivae pink. Sclerae anicteric. Oral cavity, no lesions. NECK: No JVD or lymph node enlargement. CHEST: Clear to auscultation. HEART: Regular rate and rhythm. ABDOMEN: Soft. Bowel sounds are positive. Mild tenderness in the left lower quadrant area and in the suprapubic area, but it was soft. EXTREMITIES: No pedal edema. SKIN: No rashes. NEUROLOGIC: Alert and oriented x 3. No focal deficits. LABS: WBC 12.7, hemoglobin 11.6, platelets normal. Basic metabolic panel is within normal limits. Clostridium-difficile toxin is negative, and cultures are still pending. IMPRESSION: This lady presents to the hospital with acute onset of lower abdominal pain followed by bloody diarrhea of 2 days' duration, CT showing thickening of the left colon consistent with ischemic colitis but possibility of infectious colitis cannot be excluded. On empiric antibiotics, doing better. Her bleeding and abdominal pain are gradually improving. RECOMMENDATIONS: 1. Continue with antibiotics. 2. Await the rest of the stool studies. 3. Advance to a full liquid diet today. 4. Repeat CBC in the morning. 5. Will follow with you closely. Thank you for this consultation. MMODL / IJN: [id number] /
[2019-05-24 19:14] LABS: Basophils % (A) 0 %; Eosinophils # (A) 0.2 k/uL (0-0.7); Eosinophils % (A) 2 %; HGB 11.6 gm/dL (11.4-16.0); Lymphocytes # (A) 1.8 k/uL (1.0-4.8); Lymphocytes % (A) 14 %; MCH 29.3 pg (25.0-35.0); MCHC 32.2 g/dL (31.0-37.0); MCV 91.1 fL (80.0-100.0); Mean Platelet Volume 7.1; Monocytes # (A) 0.5 k/uL (0-1.0); Monocytes % (A) 4 %; Neutrophils % (A) 79 %; Platelet Count 198 k/uL (150-450); RBC 3.95 m/uL (3.80-5.40); WBC 12.7 k/uL (3.8-10.6)
[2019-05-25] MEDS: PIPERACILLIN-TAZOBACTAM 3.375 GM in SODIUM CHLORIDE 0.9% 100 ML IVPB SCH ×4 (00:25→23:47)
[2019-05-25] MEDS: MORPHINE SULFATE 4 MG/ML SYRINGE IVP PRN (03:08)
[2019-05-25] MEDS: SODIUM CHLORIDE 0.9% 1,000 ML IV SCH ×3 (03:09→22:10)
--- NOTE | 2019-05-25 07:52 | P.PN ---
Progress Note - Text Progress Note Date: 05/25/19 patient with colitis infectious vs inflamatory vs ischemic , GIB monitoring hgb, stable OP plans for Cscope sign off to sarita
[2019-05-25] MEDS: ONDANSETRON 4 MG/2 ML VIAL IVP PRN (08:02)
[2019-05-25] MEDS: PANTOPRAZOLE 40 MG TABLET PO SCH ×2 (08:02→16:45)
[2019-05-25 08:39] LABS: Basophils % (A) 0 %; Eosinophils # (A) 0.2 k/uL (0-0.7); Eosinophils % (A) 2 %; HCT 36.1 % (34.0-46.0); HGB 11.6 gm/dL (11.4-16.0); Lymphocytes # (A) 1.7 k/uL (1.0-4.8); Lymphocytes % (A) 16 %; MCH 29.2 pg (25.0-35.0); MCHC 32.1 g/dL (31.0-37.0); MCV 90.9 fL (80.0-100.0); Mean Platelet Volume 8.5; Monocytes # (A) 0.7 k/uL (0-1.0); Monocytes % (A) 6 %; Neutrophils # (A) 7.9 k/uL (1.3-7.7); Neutrophils % (A) 75 %; Platelet Count 167 k/uL (150-450); RBC 3.98 m/uL (3.80-5.40); RDW 12.8 % (11.5-15.5); WBC 10.5 k/uL (3.8-10.6)
[2019-05-25 09:01] LABS: African American GFR (CKD) >90 (>60 ml/min/1.73 sqM); Anion Gap 5 mmol/L; Blood Urea Nitrogen 13 mg/dL (7-17); Calcium 8.1 mg/dL (8.4-10.2); Carbon Dioxide 23 mmol/L (22-30); Chloride 108 mmol/L (98-107); Glucose 87 mg/dL (74-99); Non-African American GFR(CKD) >90 (>60 ml/min/1.73 sqM); Sodium 136 mmol/L (137-145)
[2019-05-25 09:04] LABS: Potassium 4.1 mmol/L (3.5-5.1)
[2019-05-25] MEDS ORDERED: ACETAMINOPHEN TAB 500 MG TAB PO PRN (10:28)
--- NOTE | 2019-05-25 20:56 | PN ---
PROGRESS NOTE DATE OF SERVICE: May 25, 2019 Patient is a 58-year-old pleasant white female admitted to the hospital with acute onset of lower abdominal pain followed by bloody diarrhea of 2 days duration. She is feeling much better. Abdominal pain is improving. She had 2 bowel movements today which had no blood in the stool. She remains on a full liquid diet, tolerating well. PHYSICAL EXAMINATION: Appears comfortable, no apparent distress. Vital signs stable. Blood pressure 161/73, pulse rate 61, temperature 98.1. HEENT examination unremarkable. Conjunctivae pink. Sclerae anicteric. Oral cavity no lesions. Neck no JVD or lymph node enlargement. Chest was clear to auscultation. HEART: Regular rate and rhythm. ABDOMEN: Soft, it was very minimal tenderness in the left lower quadrant area and suprapubic area. EXTREMITIES: No pedal edema. SKIN: No rashes. NEUROLOGIC: Alert and oriented x3. No focal deficits. LABS: Today WBC 10.5, hemoglobin 11.6, platelets normal. Basic metabolic panel is within normal limits. IMPRESSION: Acute onset of lower abdominal pain followed by bloody diarrhea and CT scan showing evidence of left-sided colitis all consistent with acute ischemic colitis versus infectious etiology. The patient doing much better. Abdominal pain is improving and rectal bleeding has completely subsided. She remains on Zosyn. Stool studies so far have been negative. RECOMMENDATIONS: 1. Advance to full liquid diet today and tomorrow to a low-fiber diet. 2. If the symptoms improve and she has no further bleeding, she can be discharged home tomorrow with outpatient followup in 2 weeks. 3. Repeat CBC in the morning. Thank you for this consultation. MMODL / IJN: [id number] /
[2019-05-25 22:28] LABS: Basophils % (A) 0 %; Eosinophils # (A) 0.2 k/uL (0-0.7); Eosinophils % (A) 2 %; HCT 32.5 % (34.0-46.0); HGB 10.6 gm/dL (11.4-16.0); Lymphocytes # (A) 1.5 k/uL (1.0-4.8); Lymphocytes % (A) 20 %; MCH 29.2 pg (25.0-35.0); MCHC 32.6 g/dL (31.0-37.0); MCV 89.5 fL (80.0-100.0); Mean Platelet Volume 7.6; Monocytes # (A) 0.4 k/uL (0-1.0); Monocytes % (A) 5 %; Neutrophils # (A) 5.5 k/uL (1.3-7.7); Neutrophils % (A) 71 %; Platelet Count 163 k/uL (150-450); RBC 3.63 m/uL (3.80-5.40); RDW 12.7 % (11.5-15.5); WBC 7.7 k/uL (3.8-10.6)
--- NOTE | 2019-05-25 22:32 | P.PN ---
Progress Note - Text Progress Note Date: 05/25/19 Presenting complaint: Abdominal pain, bloody stools Hospital course: Admitted with abdominal pain, bloody diarrhea for 2 days-acute colitis diagnosed. Today-abdominal pain better. A bowel movement earlier today. No blood. Some nausea. Did receive IV Dilaudid. Overall feeling better. Up to the bathroom. Review of systems: Was done for constitutional, cardiovascular, GI, pulmonary. relevant finding as above Active Medications Acetaminophen (Tylenol Tab) 1,000 mg PO Q6HR PRN PRN Reason: Fever and/ or Mild Pain Last Admin: 05/25/19 16:45 Dose: 1,000 mg Documented by: Sodium Chloride (Saline 0.9%) 1,000 mls @ 100 mls/hr IV .Q10H [facility] Last Admin: 05/25/19 22:10 Dose: 100 mls/hr Documented by: Piperacillin Sod/Tazobactam (Sod 3.375 gm/ Sodium Chloride) 100 mls @ 25 mls/hr IVPB Q8HR [facility] Last Admin: 05/25/19 16:43 Dose: 25 mls/hr Documented by: Naloxone HCl (Narcan) 0.2 mg IV Q2M PRN PRN Reason: Opioid Reversal Ondansetron HCl (Zofran) 4 mg IVP Q6HR PRN PRN Reason: Nausea And Vomiting Last Admin: 05/25/19 08:02 Dose: 4 mg Documented by: Pantoprazole Sodium (Protonix) 40 mg PO AC-BID [facility] Last Admin: 05/25/19 16:45 Dose: 40 mg Documented by: Physical examination: VITAL SIGNS: 98.1, 62, 18, 157/72, 98% on room air GENERAL: Sitting up, comfortable. EYES: Pupils equal. Conjunctiva normal. HEENT: External appearance of nose and ears normal, oral cavity grossly normal. NECK: JVD not raised; masses not palpable. HEART: First and second heart sounds are normal; no edema. LUNGS: Respiratory rate normal; clear to auscultation. ABDOMEN: Soft, slightly bloated mild tenderness, no guarding or rigidity, liver spleen not palpable, no masses palpable. PSYCH: Alert and oriented x3; mood and affect normal. INVESTIGATIONS, reviewed in the clinical context: White count 7.7 hemoglobin 10.6 Previous testing: Computed tomography scan-contiguous wall thickening involving the colon extending from the mid transverse colon through the sigmoid colon Assessment: -Acute colitis left-sided, infectious versus ischemic with some improvement -Hyperlipidemia -Normocytic anemia from colitis -Hypoalbuminemia-acute phase reactant Plan: Patient will a clear liquid diet. We'll advance to full liquid diet this evening if tolerated. DC morphine. Use Tylenol and healing bed. Encouraged the patient ablate. Care was discussed at length with the patient. Questions were answered.
[2019-05-25] MEDS ORDERED: ENOXAPARIN 40 MG/0.4 ML SYRINGE SQ SCH (22:45)
[2019-05-26] MEDS: PANTOPRAZOLE 40 MG TABLET PO SCH (08:35)
[2019-05-26] MEDS: SODIUM CHLORIDE 0.9% 1,000 ML IV SCH (08:35)
[2019-05-26] MEDS: PIPERACILLIN-TAZOBACTAM 3.375 GM in SODIUM CHLORIDE 0.9% 100 ML IVPB SCH (08:36)
[2019-05-26 11:21] LABS: HCT 36.9 % (34.0-46.0); MCHC 32.5 g/dL (31.0-37.0); MCV 89.1 fL (80.0-100.0); Mean Platelet Volume 9.4; Platelet Count 171 k/uL (150-450); RBC 4.14 m/uL (3.80-5.40); RDW 12.5 % (11.5-15.5); WBC 6.3 k/uL (3.8-10.6)
[2019-05-26 12:30] VITALS: BP 175/78; PULSE 57; RESP 17; TEMP 97.9
--- NOTE | 2019-05-26 16:48 | PN ---
PROGRESS NOTE DATE OF DICTATION: 05/26/2019 Patient is a 58-year-old pleasant white female admitted to the hospital with acute lower abdominal pain and bloody diarrhea of 2 days' duration. She is feeling much better. Abdominal pain has resolved. She is on a regular diet, tolerating well. She has some abdominal bloating, had one bowel movement today with no bleeding. No fever, chills, night sweats. PHYSICAL EXAMINATION: Blood pressure is 175/78, pulse rate 57, temperature 97.9. HEENT examination unremarkable. Conjunctivae pink. Sclerae anicteric. Oral cavity no lesions. NECK: No JVD or lymph node enlargement. CHEST: Clear to auscultation. HEART: Regular rate and rhythm. ABDOMEN: Soft. Minimal tenderness in the left lower quadrant area. Rest of the abdomen is benign. Bowel sounds are positive. EXTREMITIES: No pedal edema. SKIN: No rashes. NEUROLOGIC: Alert and oriented x3. No focal deficits. LABS: WBC 6.3, hemoglobin 12, platelets 171. IMPRESSION: Acute onset of lower abdominal pain and bloody diarrhea of 2 days' duration, most likely ischemic colitis, but possibility of infectious colitis could not be excluded. So far stool studies have been negative. She was on empiric antibiotics and her symptoms are significantly improved. Abdominal pain has resolved and rectal bleeding has resolved. Hemoglobin is stable. RECOMMENDATIONS: 1. Low-fiber diet for 2 weeks. 2. Okay for discharge today. 3. Follow up in office in 2 weeks. Thank you for this consultation. MMODL / ROXN: [id number] /
--- NOTE | 2019-05-26 17:14 | P.DS ---
Providers Date of admission: 05/23/19 10:48 Expected date of discharge: 05/26/19 Attending physician: Jaswinder Glasgow Consults: 05/23/19 11:03 Consult Physician Routine Consulting Provider: Jimena Frausto Consult Reason/Comments: gi bleed Do you want consulting provider notified?: Yes Primary care physician: L[facility] Course: Presenting complaint: Abdominal pain, bloody stools Hospital course: Admitted with abdominal pain, bloody diarrhea for 2 days-acute ischemic colitis likely..treated with IV Zosyn. Today-abdominal pain much improved. Did tolerate some diet. Had a loose stool today. Did ambulate in the hallway. Seen by GI..dictated for discharge. Diet was discussed with the patient. Discussion and discharge planning more than 35 minutes Consultation: Dr. Frida Frausto from GI Physical examination: VITAL SIGNS: 97.9, 57, 17, 142/67, 97% on room air GENERAL: comfortablee. EYES: Pupils equal. Conjunctiva normal. HEENT: External appearance of nose and ears normal, oral cavity grossly normal. NECK: JVD not raised; masses not palpable. HEART: First and second heart sounds are normal; no edema. LUNGS: Respiratory rate normal; clear to auscultation. ABDOMEN: Soft, minimal tenderness, no guarding or rigidity, liver spleen not palpable, no masses palpable. PSYCH: Alert and oriented x3; mood and affect normal. INVESTIGATIONS, reviewed in the clinical context: White count 6.3 hemoglobin 12 Previous testing: Computed tomography scan-contiguous wall thickening involving the colon extending from the mid transverse colon through the sigmoid colon white count 90.5. Lactic acid 2.2 Assessment: -Acute colitis left-sided, infectious versus ischemic, causing sepsis, POA -Hyperlipidemia -Normocytic anemia from colitis -Hypoalbuminemia-acute phase reactant Plan: home Patient Condition at Discharge: Stable Plan - Discharge Summary Discharge Rx Participant: No New Discharge Prescriptions: New Amoxic-Pot Clav 875-125Mg [Augmentin 875-125] 1 tab PO BID #14 tab Continue Pravastatin Sodium [Pravachol] 20 mg PO DAILY Multivitamins, Thera [Multivitamin (formulary)] 1 tab PO DAILY Discharge Medication List Multivitamins, Thera [Multivitamin (formulary)] 1 tab PO DAILY 05/23/19 [Histo ry] Pravastatin Sodium [Pravachol] 20 mg PO DAILY 05/23/19 [History] Amoxic-Pot Clav 875-125Mg [Augmentin 875-125] 1 tab PO BID #14 tab 05/26/19 [Rx] Follow up Appointment(s)/Referral(s): López Hamm MD [Primary Care Provider] - 05/30/19 12:15 pm Jimena Frausto MD [STAFF PHYSICIAN] - 06/22/19 1:30 pm (You will see Ines Stacy please arrive fifteen minutes before your appointment.) Patient Instructions/Handouts: Amoxicillin/Clavulanate Potassium (By mouth), Dehydration (DC), Low Fiber Diet (DC), Infectious Colitis (GEN) Activity/Diet/Wound Care/Special Instructions: Activity as tolerated. Soft bland diet Discharge Disposition: HOME SELF-CARE
== END 2019-05-26 15:54 | disposition home or self-care (01) | DRG 871 ==
LOC: EC 09:05 → 5NMEDONC 10:48
PROVIDERS: ADMIT Hospitalist; ATTEND Hospitalist
DX: A41.9 Sepsis, unspecified organism (principal); K55.031 Focal (segmental) acute (reversible) ischemia of large intestine; A09 Infectious gastroenteritis and colitis, unspecified; E88.09 Other disorders of plasma-protein metabolism, not elsewhere classified; D64.9 Anemia, unspecified; E78.00 Pure hypercholesterolemia, unspecified; E78.5 Hyperlipidemia, unspecified; E86.0 Dehydration; I10 Essential (primary) hypertension; K64.9 Unspecified hemorrhoids; Z79.899 Other long term (current) drug therapy; Z87.891 Personal history of nicotine dependence; Z81.1 Family history of alcohol abuse and dependence; Z81.3 Family history of other psychoactive substance abuse and dependence
CPT/HCPCS: 36415; 74177; 80048; 80053; 82272; 83605; 84484; 85025; 85027; 85730; 86850; 86900; 86901; 87040; 87045; 87046; 87324; 96361; 96365; 96374; 96375; 96376; 99285

== ENCOUNTER 2022-12-08 10:45 | Inpatient (IN) | payer BC ==
[2022-12-08] MEDS ORDERED: SODIUM CHLORIDE 0.9% 1,000 ML IV STA ×2 (11:05→12:24)
[2022-12-08] MEDS ORDERED: KETOROLAC 15 MG/ML 1 ML VIAL IVP STA ×2 (11:05→12:28)
[2022-12-08] MEDS ORDERED: ONDANSETRON 4 MG/2 ML VIAL IVP STA (11:05)
[2022-12-08 11:31] LABS: Basophils % (A) 1 %; Eosinophils # (A) 0.1 k/uL (0-0.7); Eosinophils % (A) 1 %; HCT 43.6 % (34.0-46.0); HGB 14.3 gm/dL (11.4-16.0); Lymphocytes # (A) 1.4 k/uL (1.0-4.8); Lymphocytes % (A) 16 %; MCH 29.2 pg (25.0-35.0); MCHC 32.9 g/dL (31.0-37.0); MCV 88.8 fL (80.0-100.0); Mean Platelet Volume 7.4; Monocytes # (A) 0.3 k/uL (0-1.0); Monocytes % (A) 4 %; Neutrophils # (A) 7.1 k/uL (1.3-7.7); Neutrophils % (A) 77 %; Platelet Count 352 k/uL (150-450); RBC 4.91 m/uL (3.80-5.40); RDW 12.5 % (11.5-15.5); WBC 9.2 k/uL (3.8-10.6)
--- NOTE | 2022-12-08 11:33 | ED ---
General Adult HPI - General Chief complaint: Urogenital Stated complaint: L side pain Time Seen by Provider: 12/08/22 10:56 Source: patient, RN notes reviewed Mode of arrival: ambulatory Limitations: no limitations - History of Present Illness Initial comments: Patient is a 62-year-old female presenting the emergency room with complaints of nausea, vomiting and left flank pain into the groin. She also reports being sick last week with cough and congestion. She reports that she is nauseated and vomiting at the time of exam however there is only sputum production in the emesis been. She states that she had some light pink blood in her urine approximately 6 days ago but has none at this time. She reports generalized malaise. She denies any chest pain, shortness, abdominal pain not related to left flank pain radiculopathy, headache, dizziness, fevers or chills. Her past medical history which includes nephrolithiasis as listed below was reviewed. - Related Data Home Medications Medication Instructions Recorded Confirmed Multivitamins, Thera [Multivitamin 1 tab PO DAILY 05/23/19 05/23/19 (formulary)] Pravastatin Sodium [Pravachol] 20 mg PO DAILY 05/23/19 05/23/19 Previous Rx's Medication Instructions Recorded Amoxic-Pot Clav 875-125Mg 1 tab PO BID #14 tab 05/26/19 [Augmentin 875-125] Allergies Allergy/AdvReac Type Severity Reaction Status Date / Time No Known Allergies Allergy Verified 12/08/22 10:50 Review of Systems ROS Statement: Those systems with pertinent positive or pertinent negative responses have been documented in the HPI. ROS Other: All systems not noted in ROS Statement are negative. Past Medical History Past Medical History: No Reported History Additional Past Medical History / Comment(s): 2018 cologard normal, nephrolithiasis-pt passed on her own, hemorrhoids, occasional low back pain. History of Any Multi-Drug Resistant Organisms: None Reported Past Surgical History: No Surgical Hx Reported Additional Past Surgical History / Comment(s): Pt has never had surgery. Past Anesthesia/Blood Transfusion Reactions: Unable to Obtain Additional Past Anesthesia/Blood Transfusion Reaction / Comment(s): Pt has never had surgery. Past Psychological History: No Psychological Hx Reported Past Alcohol Use History: Rare Past Drug Use History: Marijuana - Past Family History Father Family Medical History: No Reported History Additional Family Medical History / Comment(s): Father is healthy Mother Additional Family Medical History / Comment(s): Mother at the age of 42 yrs, pt believes from opiod addiction/ETOH abuse. General Exam Limitations: no limitations Course Vital Signs 12/08/22 12/08/22 10:48 12:45 Temperature 98.5 F Pulse Rate 62 70 Respiratory 18 18 Rate Blood Pressure 211/93 185/74 O2 Sat by Pulse 98 100 Oximetry Medical Decision Making - Medical Decision Making Was pt. sent in by a medical professional or institution (, PA, ROLLWAY MAN, urgent c are, hospital, or jail...) When possible be specific @ -No Did you speak to anyone other than the patient for history (EMS, parent, family, police, friend...)? What history was obtained from this source @ -No Did you review nursing and triage notes (agree or disagree)? Why? @ -I reviewed and agree with nursing and triage notes Were old charts reviewed (outside hosp., previous admission, EMS record, old EKG, old radiological studies, urgent care reports/EKG's, jail records)? Report findings @ -No old charts were reviewed Differential Diagnosis (chest pain, altered mental status, abdominal pain women, abdominal pain men, vaginal bleeding, weakness, fever, dyspnea, syncope, headache, dizziness, GI bleed, back pain, seizure, CVA, palpatations, mental health, musculoskeletal)? @ -Differential Back Pain: Strain, zoster, cauda equina syndrome, epidural abscess, vertebral osteomyelitis, discitis, fracture, subluxation, disc herniation, DJD, spinal stenosis, dissection, AAA, pancreatitis, peptic ulcer disease, pyelonephritis, kidney stone, this is not meant to be an all-inclusive list. EKG interpreted by me (3pts min.). @ -None done X-rays interpreted by me (1pt min.). @ -KUB demonstrates bilateral renal calculi with normal fecal and gas pattern. Per radiologist's measurements each stone is [address] interpreted by me (1pt min.). @ -None done U/S interpreted by me (1pt. min.). @ -None done What testing was considered but not performed or refused? (CT, X-rays, U/S, labs)? Why? @ -Computed tomography scan considered but deferred due to known history of nephrolithiasis. What meds were considered but not given or refused? Why? @ -None Did you discuss the management of the patient with other professionals (professionals i.e. , PA, ROLLWAY MAN, lab, RT, psych nurse, delinquency prevention social worker, marble carver, teacher, parking enforcement officer, sample case porter)? Give summary @ -Spoke with Dr. Chin regarding patient's presentation and workup results and recommendation of observation admission for intractable pain related to renal stone; she is requesting computed tomography scan without contrast the abdomen and pelvis to be ordered but denies any other orders including consult to urology at this time. Was smoking cessation discussed for >3mins.? @ -No Was critical care preformed (if so, how long)? @ -No Were there social determinants of health that impacted care today? How? (Homelessness, low income, unemployed, alcoholism, drug addiction, transporta tion, low edu. Level, literacy, decrease access to med. care, fdc, rehab)? @ -No Was there de-escalation of care discussed even if they declined (Discuss DNR or withdrawal of care, Hospice)? DNR status @ -No What co-morbidities impacted this encounter? (DM, HTN, Smoking, COPD, CAD, Cancer, CVA, ARF, Chemo, Hep., AIDS, mental health diagnosis, sleep apnea, morbid obesity)? @ -None Was patient admitted / discharged? Hospital course, mention meds given and route, prescriptions, significant lab abnormalities, going to OR and other pertinent info. @ -62-year-old male presenting emergency room with left flank pain radiating into the groin along with nausea vomiting. She reported transient hematuria last week. Known history of nephrolithiasis. Will start workup for back pain with nausea and vomiting with laboratory studies of CBC, CMP, lactic acid, lipase and urinalysis with reflex to culture. She reports also some upper respiratory symptoms last week will additionally assess for Covid. Will give 1 L fluid bolus, Zofran and Toradol. Laboratory studies reveal a normal CBC, CMP shows elevated BUN at 30 with a normal creatinine normal electrolytes elevated glucose at 142 and elevated lactic acid at 2.6 by her swallowing was negative for influenza and RSV positive for COVID. KUB demonstrated bilateral renal calculi 3 mm in size. Patient contin ues to have pain despite Toradol will give morphine and second liter of IV hydration given BUN of 30 and lactic acid of 2.6. Awaiting urinalysis. Severe pain and nausea persists despite morphine and Zofran and Toradol. Advised recommend admission for intractable pain related to her kidney stone along with continued IV hydration she is agreeable to this plan. Will give additional dose of pain medication of Dilaudid along with Compazine for nausea now. Spoke with Dr. Chin regarding patient's presentation and workup results and recommendation of observation admission for intractable pain related to renal stone; she is requesting computed tomography scan without contrast the abdomen and pelvis to be ordered but denies any other orders including consult to urology at this time. Will admit to observation unit under sound physicians for further evaluation and treatment of intractable left flank pain, nephrolithiasis and incidental positive Covid finding. Undiagnosed new problem with uncertain prognosis? @ -No Drug Therapy requiring intensive monitoring for toxicity (Heparin, Nitro, Insulin, Cardizem)? @ -No Were any procedures done? @ -No Diagnosis/symptom? @ -Nephrolithiasis Acute, or Chronic, or Acute on Chronic? @ -Acute Uncomplicated (without systemic symptoms) or Complicated (systemic symptoms)? @ -Complicated, intractable pain Side effects of treatment? @ -No Exacerbation, Progression, or Severe Exacerbation? @ -No Poses a threat to life or bodily function? How? (Chest pain, USA, ID, pneumonia, PE, COPD, DKA, ARF, appy, cholecystitis, CVA, Diverticulitis, Homicidal, Suicidal, threat to staff... and all critical care pts) @ -Yes, intractable pain with nausea and vomiting Diagnosis/symptom? @ -Covid Acute, or Chronic, or Acute on Chronic? @ -Acute Uncomplicated (without systemic symptoms) or Complicated (systemic symptoms)? @ -Uncomplicated Side effects of treatment? @ -none Exacerbation, Progression, or Severe Exacerbation] @ -no Poses a threat to life or bodily function? @ -no. Case discussed with Dr. Orozco - Lab Data Result diagrams: 12/08/22 11:20 12/08/22 11:20 Lab Results 12/08/22 12/08/22 12/08/22 Range/Units 11:20 11:20 11:20 WBC 9.2 (3.8-10.6) k/uL RBC 4.91 (3.80-5.40) m/uL Hgb 14.3 (11.4-16.0) gm/dL Hct 43.6 (34.0-46.0) % MCV 88.8 (80.0-100.0) fL MCH 29.2 (25.0-35.0) pg MCHC 32.9 (31.0-37.0) g/dL RDW 12.5 (11.5-15.5) % Plt Count 352 (150-450) k/uL MPV 7.4 Neutrophils % 77 % Lymphocytes % 16 % Monocytes % 4 % Eosinophils % 1 % Basophils % 1 % Neutrophils # 7.1 (1.3-7.7) k/uL Lymphocytes # 1.4 (1.0-4.8) k/uL Monocytes # 0.3 (0-1.0) k/uL Eosinophils # 0.1 (0-0.7) k/uL Basophils # 0.0 (0-0.2) k/uL Sodium 142 (137-145) mmol/L Potassium 3.9 (3.5-5.1) mmol/L Chloride 106 (98-107) mmol/L Carbon Dioxide 26 (22-30) mmol/L Anion Gap 10 mmol/L BUN 30 H (7-17) mg/dL Creatinine 0.63 (0.52-1.04) mg/dL Est GFR (CKD-EPI)AfAm >90 (>60 ml/min/1.73 sqM) Est GFR (CKD-EPI)NonAf >90 (>60 ml/min/1.73 sqM) Glucose 142 H (74-99) mg/dL Plasma Lactic Acid Abdiaziz 2.6 H* (0.7-2.0) mmol/L Calcium 9.9 (8.4-10.2) mg/dL Total Bilirubin 0.7 (0.2-1.3) mg/dL AST 20 (14-36) U/L ALT 14 (4-34) U/L Alkaline Phosphatase 73 (38-126) U/L Total Protein 7.0 (6.3-8.2) g/dL Albumin 4.0 (3.5-5.0) g/dL Lipase 80 (23-300) U/L Influenza Type A (PCR) (Not Detectd) Influenza Type B (PCR) (Not Detectd) RSV (PCR) (Not Detectd) SARS-CoV-2 (PCR) (Not Detectd) 12/08/22 Range/Units 11:40 WBC (3.8-10.6) k/uL RBC (3.80-5.40) m/uL Hgb (11.4-16.0) gm/dL Hct (34.0-46.0) % MCV (80.0-100.0) fL MCH (25.0-35.0) pg MCHC (31.0-37.0) g/dL RDW (11.5-15.5) % Plt Count (150-450) k/uL MPV Neutrophils % % Lymphocytes % % Monocytes % % Eosinophils % % Basophils % % Neutrophils # (1.3-7.7) k/uL Lymphocytes # (1.0-4.8) k/uL Monocytes # (0-1.0) k/uL Eosinophils # (0-0.7) k/uL Basophils # (0-0.2) k/uL Sodium (137-145) mmol/L Potassium (3.5-5.1) mmol/L Chloride (98-107) mmol/L Carbon Dioxide (22-30) mmol/L Anion Gap mmol/L BUN (7-17) mg/dL Creatinine (0.52-1.04) mg/dL Est GFR (CKD-EPI)AfAm (>60 ml/min/1.73 sqM) Est GFR (CKD-EPI)NonAf (>60 ml/min/1.73 sqM) Glucose (74-99) mg/dL Plasma Lactic Acid Abdiaziz (0.7-2.0) mmol/L Calcium (8.4-10.2) mg/dL Total Bilirubin (0.2-1.3) mg/dL AST (14-36) U/L ALT (4-34) U/L Alkaline Phosphatase (38-126) U/L Total Protein (6.3-8.2) g/dL Albumin (3.5-5.0) g/dL Lipase (23-300) U/L Influenza Type A (PCR) Not Detected (Not Detectd) Influenza Type B (PCR) Not Detected (Not Detectd) RSV (PCR) Not Detected (Not Detectd) SARS-CoV-2 (PCR) Detected A (Not Detectd) - Radiology Data Radiology results: report reviewed, image reviewed Disposition Clinical Impression: Bilateral nephrolithiasis, COVID-19 Disposition: ADMITTED IP TO THIS [facility] Condition: Stable Is patient prescribed a controlled substance at d/c from ED?: No Referrals: López Hamm MD [Primary Care Provider] - 1-2 days Time of Disposition: 13:24
[2022-12-08 11:42] LABS: ALT 14 U/L (4-34); AST 20 U/L (14-36); African American GFR (CKD) >90 (>60 ml/min/1.73 sqM); Alkaline Phosphatase 73 U/L (38-126); Anion Gap 10 mmol/L; Blood Urea Nitrogen 30 mg/dL (7-17); Calcium 9.9 mg/dL (8.4-10.2); Carbon Dioxide 26 mmol/L (22-30); Chloride 106 mmol/L (98-107); Glucose 142 mg/dL (74-99); Lipase 80 U/L (23-300); Non-African American GFR(CKD) >90 (>60 ml/min/1.73 sqM); Potassium 3.9 mmol/L (3.5-5.1); Sodium 142 mmol/L (137-145); Total Bilirubin 0.7 mg/dL (0.2-1.3)
--- NOTE | 2022-12-08 12:23 | XR ---
EXAMINATION TYPE: XR KUB DATE OF EXAM: 12/08/2022 12:03 PM INDICATION: Patient age:Female; 62 years old; Reason for study: flank pain; COMPARISON: None. TECHNIQUE: One radiographic view of the abdomen was obtained. FINDINGS: The bowel gas pattern is nonspecific without dilated loops of small or large bowel. There i s no evidence for organomegaly or pneumoperitoneum. The osseous structures are intact. Pelvic phleb oliths are present. Fecal material and gas are demonstrated throughout the colon and rectum. Small densities project over the kidneys bilaterally which could represent renal stones measuring 3 mm Mult ilevel degeneration changes throughout the spine with osteophyte formation and disc space narrowing. The lungs are clear where visualized. IMPRESSION: 1. Nonspecific bowel gas pattern without radiographic evidence for acute process. 2. Small possible bilateral renal calculi.
[2022-12-08] MEDS ORDERED: MORPHINE SULFATE 4 MG/ML SYRINGE IVP STA (12:29)
[2022-12-08] MEDS ORDERED: PROCHLORPERAZINE INJ 10 MG/2 ML VIAL IVP STA (13:19)
[2022-12-08] MEDS ORDERED: HYDROmorphone 1 MG/ML 1 ML SYRINGE IVP STA (13:19)
--- NOTE | 2022-12-08 13:59 | CT ---
EXAMINATION TYPE: CT abdomen pelvis wo con CT DLP: 403.7 mGycm, Automated exposure control for dose reduction was used. DATE OF EXAM: 12/08/2022 1:42 PM COMPARISON: CT abdomen pelvis most recent from 05/23/2019. CLINICAL INDICATION:Female, 62 years old with history of flank pain; Left sided flank pain, nausea an d vomiting. TECHNIQUE: Axial CT of the abdomen and pelvis. Sagittal and coronal reformats were created on a [employer] workstation. Contrast used: mL of , (none if empty) Oral contrast used: without Oral Contrast (none if empty) FINDINGS: LOWER CHEST: Unremarkable ABDOMEN LIVER: Unremarkable GALLBLADDER AND BILE DUCTS: Layering increased densities within the lumen consistent with gallstones are present. PANCREAS: Unremarkable. SPLEEN: Unremarkable. ADRENAL GLANDS: Unremarkable. KIDNEYS AND URETERS: Mild left hydronephrosis secondary obstructing 4 mm calculus in the proximal lef t ureter. Additional nonobstructing left renal calculi measuring up to 3 mm. Nonobstructing right krista al calculi measuring up to 3 mm. PELVIS BLADDER: Incompletely distended but grossly unremarkable. REPRODUCTIVE: Unremarkable. ABDOMEN & PELVIS STOMACH AND BOWEL: No evidence of bowel obstruction. Scattered colonic diverticula. The appendix is n ormal. PERITONEUM/RETROPERITONEUM: No evidence of pneumoperitoneum or free fluid. VASCULATURE: Mild atherosclerotic calcifications are present throughout the abdominal aorta and its b ranches. No evidence of aortic aneurysm. MUSCULOSKELETAL: No acute osseous abnormalities. Mild disc degeneration changes are present throughou t the thoracolumbar spine. LYMPH NODES: No gross evidence for lymphadenopathy. SOFT TISSUE/ABDOMINAL WALL: Fat-containing umbilical hernia. IMPRESSION: 1. Mild left hydronephrosis secondary obstructing 4 mm calculus in the proximal left ureter. 2. Additional bilateral nonobstructing renal calculi. 3. Cholelithiasis. 4. Colonic diverticulosis.
[2022-12-08] MEDS ORDERED: NALOXONE 0.4 MG/ML 1 ML VIAL IV PRN (15:18)
[2022-12-08] MEDS ORDERED: HYDROmorphone 2 MG TAB PO PRN (15:18)
[2022-12-08] MEDS ORDERED: traMADol 50 MG TAB PO PRN (15:18)
[2022-12-08] MEDS: SODIUM CHLORIDE 0.9% 1,000 ML IV SCH (15:30)
--- NOTE | 2022-12-08 16:50 | P.HPIM ---
History of Present Illness H&P Date: 12/08/22 Patient is a 62 year old F with PMH of dyslipidemia, seasonal ALLERGIES, depression presents the ED for flank pain. Patient reports hematuria that started the day prior to admission. She reports waking up with excruciating left flank pain, constant, throbbing, radiating to the left groin, 10/10 in severity. She reports nausea and vomting. Also reports shes been dealing with a viral illness for the past week consistent of dry cough, nasal congesion and malaise. Her BP was noted to be elevated at 211/93. Vital signs otherwise stable. CBC was unremarkable. CMP showed BUN of 30, glucose 142. Actiq acid was 2.6. Influenza, RSV negative. COVID-[address] AP showed mi ld left hydronephrosis secondary to obstructing 4 mm calculus in the proximal left ureter with bilateral nonobstructing renal calculi, cholelithiasis and diverticulosis. Patient is admitted under observation status for further management of symptoms. General: no distress, appears at stated age Derm: warm, dry Head: atraumatic, normocephalic, symmetric Eyes: EOMI, no lid lag, anicteric sclera Cardiovascular: Good distal perfusion in all 4 extremities Lungs: Breathing comfortably, no accessory muscle use. Ext: no gross muscle atrophy, no edema, no contractures Neuro: no focal neuro deficits Psych: Alert, oriented, appropriate affect Obstructing ureteral stone with mild left hydronephrosis Lactic acidosis Prerenal azotemia Elevated BP without the diagnosis of hypertension COVID-19, asymptomatic Based on my assessment of this patient, this patient meets a high complexity level of care. Patient has an acute diagnosis of acute hypoxic respiratory failure secondary to COVID-19 pneumonia in the setting of hypotension, elevated troponin and severe bradycardia that poses a threat to life or bodily function. Obstructing ureteral stone with mild left hydronephrosis: Zofran 4 mg IV every 8 hours as needed for nausea and vomiting. Morphine 2 mg IV every 4 hours as needed, Toradol 15 mg IV every 6 hours as needed for pain. Urology consultation. Normal saline at 130 mL per hour. Lactic acidosis: IV hydration as above. Prerenal azotemia: IV hydration as above. Elevated BP: Improving with pain control. Continue to monitor. COVID-19: Asymptomatic. No need for treatment at this time. Lovenox SQ for DVT prophylaxis. Full CODE. Patient names her son decision maker if he can't make decisions for himself. I have reviewed the following senior solutions workflow consultant notes: I have reviewed the results of the following tests: CBC, CMP, Lactic acid, Lipase, COVID, Flu, RSV, KUB, CT AP. I have ordered the following tests: BMP. UA I have discussed the care of this patient with the following independent historian: I have independently interpreted the following test below: I have discussed the management of this patient with the following physician: Patient requires IV narcotics for adequate pain control. Past Medical History Past Medical History: No Reported History Additional Past Medical History / Comment(s): 2018 cologard normal, nephrolithiasis-pt passed on her own, hemorrhoids, occasional low back pain. History of Any Multi-Drug Resistant Organisms: None Reported Past Surgical History: No Surgical Hx Reported Additional Past Surgical History / Comment(s): Pt has never had surgery. Past Anesthesia/Blood Transfusion Reactions: Unable to Obtain Additional Past Anesthesia/Blood Transfusion Reaction / Comment(s): Pt has never had surgery. Past Psychological History: No Psychological Hx Reported Past Alcohol Use History: Rare Past Drug Use History: Marijuana - Past Family History Father Family Medical History: No Reported History Additional Family Medical History / Comment(s): Father is healthy Mother Additional Family Medical History / Comment(s): Mother at the age of 42 yrs, pt believes from opiod addiction/ETOH abuse. Medications and Allergies Home Medications Medication Instructions Recorded Confirmed Type Pravastatin Sodium [Pravachol] 20 mg PO DAILY 05/23/19 12/08/22 History Cetirizine HCl [Zyrtec] 10 mg PO DAILY 12/08/22 12/08/22 History Sertraline [Zoloft] 50 mg PO DAILY 12/08/22 12/08/22 History Allergies Allergy/AdvReac Type Severity Reaction Status Date / Time No Known Allergies Allergy Verified 12/08/22 16:17 Physical Exam Vitals: Vital Signs Temp Pulse Resp BP Pulse Ox 12/08/22 16:18 78 18 157/75 97 12/08/22 12:45 70 18 185/74 100 12/08/22 10:48 98.5 F 62 18 211/93 98 Intake and Output 12/08/22 12/08/22 12/08/22 06:59 14:59 22:59 Other: Voiding Method Toilet Weight 61.235 kg Results CBC & Chem 7: 12/08/22 11:20 12/08/22 11:20 Labs: Abnormal Lab Results - Last 24 Hours (Table) 12/08/22 12/08/22 12/08/22 Range/Units 11:20 11:20 11:40 BUN 30 H (7-17) mg/dL Glucose 142 H (74-99) mg/dL Plasma Lactic Acid Abdiaziz 2.6 H* (0.7-2.0) mmol/L SARS-CoV-2 (PCR) Detected A (Not Detectd)
[2022-12-08 18:50] LABS: Appearance,Urine Cloudy (Clear); Bacteria,Urine Few /hpf; Bilirubin,Urine Negative (Negative); Blood,Urine Large (Negative); Color,Urine Yellow; Glucose,Urine (UA) Negative (Negative); Ketones,Urine Negative (Negative); Leukocyte Esterase,Urine Large (Negative); Mucus,Urine Moderate /hpf; Nitrite,Urine Negative (Negative); PH, Urine 5.5 (5.0-8.0); Protein,Urine 1+ (Negative); RBC,Urine 10 /hpf (0-5); Specific Gravity,Urine 1.014 (1.001-1.035); Squamous Epithelial Cell,Urine 4 /hpf (0-4); Transitional Epi Cells,Urine <1 /hpf (0-1); Urobilinogen,Urine <2.0 mg/dL (<2.0); WBC,Urine 115 /hpf (0-5)
[2022-12-09] MEDS: SODIUM CHLORIDE 0.9% 1,000 ML IV SCH ×4 (04:41→22:39)
[2022-12-09] MEDS: KETOROLAC 15 MG/ML 1 ML VIAL IVP PRN ×2 (04:54→16:19)
[2022-12-09 06:31] LABS: African American GFR (CKD) >90 (>60 ml/min/1.73 sqM); Anion Gap 5 mmol/L; Blood Urea Nitrogen 20 mg/dL (7-17); Calcium 8.2 mg/dL (8.4-10.2); Carbon Dioxide 24 mmol/L (22-30); Chloride 105 mmol/L (98-107); Glucose 118 mg/dL (74-99); Non-African American GFR(CKD) >90 (>60 ml/min/1.73 sqM); Potassium 3.6 mmol/L (3.5-5.1); Sodium 134 mmol/L (137-145)
[2022-12-09] MEDS: ENOXAPARIN 40 MG/0.4 ML SYRINGE SQ SCH (08:05)
[2022-12-09] MEDS: SERTRALINE 100 MG TAB PO SCH (08:05)
[2022-12-09] MEDS: LORATADINE 10 MG TAB PO SCH (08:05)
[2022-12-09] MEDS: PRAVASTATIN SODIUM 20 MG TAB PO SCH (08:05)
[2022-12-09] MEDS: ACETAMINOPHEN TAB 325 MG TAB PO PRN (10:56)
--- NOTE | 2022-12-09 15:48 | P.PN ---
Subjective Progress Note Date: 12/09/22 Pt says that her pain is significantly improved over the last day. Gen: awake, alert HEENT: normocephalic, atraumatic, good hearing acuity, moist mucous membranes Resp: good air exchange, breathing comfortably with no accessory muscle use CVS: good distal perfusion x 4, GI: soft, NTTP, ND : no SPT, no CVAT, cheng catheter not present MSK: no pitting edema, no clubbing Neuro: non-focal, moving all extremities Psych: cooperative, euthymic mood Hospital Course: Patient is a 62 year old F with PMH of dyslipidemia, seasonal ALLERGIES, depression presents the ED for flank pain. Patient reports hematuria that started the day prior to admission. She reports waking up with excruciating left flank pain, constant, throbbing, radiating to the left groin, 10/10 in severity. She reports nausea and vomting. Also reports shes been dealing with a viral illness for the past week consistent of dry cough, nasal congesion and malaise. Her BP was noted to be elevated at 211/93. Vital signs otherwise stable. CBC was unremarkable. CMP showed BUN of 30, glucose 142. Actiq acid was 2.6. Influenza, RSV negative. COVID-[address] AP showed mild left hydronephrosis secondary to obstructing 4 mm calculus in the proximal left ureter with bilateral nonobstructing renal calculi, cholelithiasis and diverticulosis. Patient is admitted under observation status for further management of symptoms. Assessment/Plan: Vitals: Afebrile, 122/66, heart rate 78, 96% on room air Labs: Sodium 134, BUN 20 Images: No additional images today to review Consultants: Urology consult is pending Obstructing ureteral stone with mild left hydronephrosis Lactic acidosis -toradol PRN for pain -morphine PRN for pain -urology consult is pending Prerenal azotemia -IVF COVID-19, asymptomatic Pt is full code Objective - Vital Signs Vital signs: Vital Signs Temp 98.5 F 12/09/22 07:00 Pulse 78 12/09/22 07:00 Resp 16 12/09/22 07:00 BP 122/66 12/09/22 07:00 Pulse Ox 96 12/09/22 07:00 FiO2 Intake & Output 09/07/2712/09/22 12/09/22 18:59 06:59 18:59 Weight 61.235 kg Other: Voiding Method Toilet Toilet Toilet # Voids 1 1 - Labs CBC & Chem 7: 12/08/22 11:20 12/09/22 06:01 Labs: Abnormal Lab Results - Last 24 Hours (Table) 12/08/22 12/09/22 Range/Units 17:53 06:01 Sodium 134 L (137-145) mmol/L BUN 20 H (7-17) mg/dL Glucose 118 H (74-99) mg/dL Calcium 8.2 L (8.4-10.2) mg/dL Urine Appearance Cloudy H (Clear) Urine Protein 1+ H (Negative) Urine Blood Large H (Negative) Ur Leukocyte Esterase Large H (Negative) Urine RBC 10 H (0-5) /hpf Urine WBC 115 H (0-5) /hpf Urine WBC Clumps Occasional H (None) /hpf Urine Bacteria Few H (None) /hpf Urine Mucus Moderate H (None) /hpf
--- NOTE | 2022-12-09 16:56 | P.GSCN ---
History of Present Illness Consult date: 12/09/22 Reason for Consult: Left ureteral calculus Requesting physician: Mary Tinsley History of present illness: The patient is a 62-year-old white female with a history of urolithiasis which has not required surgery. One week ago, she experienced gross hematuria. Yesterday, she experienced acute onset of left flank pain radiating to the left groin, associated with nausea and vomiting. She presented to the ER, and her evaluation included a CT scan which showed evidence of mild left hydronephrosis due to a 4 mm left proximal ureteral calculus. Additional small renal calculi were seen. She has experienced a recent productive cough, and has tested positive for COVID. Her pain today is controlled with Toradol. Previous 24- hour urine evaluation showed low volume and borderline hypocitraturia, so she was advised to increase her oral fluid intake, particularly of citrate-rich beverages such as lemonade. Review of Systems - Constitutional Reports chills, Denies fever - Respiratory Reports cough with sputum - Gastrointestinal Reports nausea, Reports vomiting - Genitourinary Genitourinary: Reports flank pain, Reports hematuria, Reports kidney stones, Denies dysuria Past Medical History Past Medical History: No Reported History Additional Past Medical History / Comment(s): 2018 cologard normal, n ephrolithiasis-pt passed on her own, hemorrhoids, occasional low back pain. m gall stones History of Any Multi-Drug Resistant Organisms: None Reported Past Surgical History: No Surgical Hx Reported Additional Past Surgical History / Comment(s): eye lid vaginal surg Past Anesthesia/Blood Transfusion Reactions: No Reported Reaction Additional Past Anesthesia/Blood Transfusion Reaction / Comm: Pt has never had surgery. Past Psychological History: Anxiety Additional Psychological History / Comment(s): PT resides with her spouse. She uses no device. She drives. Smoking Status: Former smoker Past Alcohol Use History: Rare Additional Past Alcohol Use History / Comment(s): Pt started smoking in 1973 and quit in 2017. Past Drug Use History: Marijuana Additional Drug Use History / Comment(s): Occasional marijuana use. - Past Family History Father Family Medical History: No Reported History Additional Family Medical History / Comment(s): Father is healthy Mother Additional Family Medical History / Comment(s): Mother at the age of 42 yrs, pt believes from opiod addiction/ETOH abuse. Medications and Allergies Home Medications Medication Instructions Recorded Confirmed Type Pravastatin Sodium [Pravachol] 20 mg PO DAILY 05/23/19 12/08/22 History Cetirizine HCl [Zyrtec] 10 mg PO DAILY 12/08/22 12/08/22 History Sertraline [Zoloft] 50 mg PO DAILY 12/08/22 12/08/22 History Allergies Allergy/AdvReac Type Severity Reaction Status Date / Time No Known Allergies Allergy Verified 12/08/22 16:17 Surgical - Exam Vital Signs Temp Pulse Resp BP Pulse Ox 98.5 F 62 18 211/93 98 12/08/22 10:48 12/08/22 10:48 12/08/22 10:48 12/08/22 10:48 12/08/22 10:48 - General well developed, well nourished, no distress - Neck no masses, trachea midline - Respiratory normal respiratory effort - Abdomen Abdomen: soft, non tender, no guarding, no rigid, no rebound - Psychiatric oriented to time, oriented to person, oriented to place, speech is normal, memory intact Results - Labs 12/08/22 11:20 12/09/22 06:01 Abnormal Lab Results - Last 24 Hours (Table) 12/08/22 12/09/22 Range/Units 17:53 06:01 Sodium 134 L (137-145) mmol/L BUN 20 H (7-17) mg/dL Glucose 118 H (74-99) mg/dL Calcium 8.2 L (8.4-10.2) mg/dL Urine Appearance Cloudy H (Clear) Urine Protein 1+ H (Negative) Urine Blood Large H (Negative) Ur Leukocyte Esterase Large H (Negative) Urine RBC 10 H (0-5) /hpf Urine WBC 115 H (0-5) /hpf Urine WBC Clumps Occasional H (None) /hpf Urine Bacteria Few H (None) /hpf Urine Mucus Moderate H (None) /hpf Diabetes panel 12/09/22 Range/Units 06:01 Sodium 134 L (137-145) mmol/L Potassium 3.6 (3.5-5.1) mmol/L Chloride 105 (98-107) mmol/L Carbon Dioxide 24 (22-30) mmol/L BUN 20 H (7-17) mg/dL Creatinine 0.57 (0.52-1.04) mg/dL Glucose 118 H (74-99) mg/dL Calcium 8.2 L (8.4-10.2) mg/dL Calcium panel 12/09/22 Range/Units 06:01 Calcium 8.2 L (8.4-10.2) mg/dL Pituitary panel 12/09/22 Range/Units 06:01 Sodium 134 L (137-145) mmol/L Potassium 3.6 (3.5-5.1) mmol/L Chloride 105 (98-107) mmol/L Carbon Dioxide 24 (22-30) mmol/L BUN 20 H (7-17) mg/dL Creatinine 0.57 (0.52-1.04) mg/dL Glucose 118 H (74-99) mg/dL Calcium 8.2 L (8.4-10.2) mg/dL Adrenal panel 12/09/22 Range/Units 06:01 Sodium 134 L (137-145) mmol/L Potassium 3.6 (3.5-5.1) mmol/L Chloride 105 (98-107) mmol/L Carbon Dioxide 24 (22-30) mmol/L BUN 20 H (7-17) mg/dL Creatinine 0.57 (0.52-1.04) mg/dL Glucose 118 H (74-99) mg/dL Calcium 8.2 L (8.4-10.2) mg/dL - Imaging Abdominal x-ray: report reviewed, image reviewed CT scan - abdomen: report reviewed, image reviewed Assessment and Plan (1) Bilateral nephrolithiasis Current Visit: Yes Status: Acute Code(s): N20.0 - CALCULUS OF KIDNEY SNOME D Code(s): 71391732 (2) Calculus of ureter Current Visit: Yes Status: Acute Code(s): N20.1 - CALCULUS OF URETER SNOMED Code(s): 13691992 (3) Hydronephrosis with renal and ureteral calculous obstruction Current Visit: Yes Status: Acute Code(s): N13.2 - HYDRONEPHROSIS WITH RENAL AND URETERAL CALCULOUS OBSTRUCTION SNOMED Code(s): 835069968 Plan: The patient is admitted with a 4 mm left proximal ureteral calculus. She has tested positive for COVID. I have advised her against undergoing general anesthesia at this time. If she develops intractable symptoms, I will place a left ureteral stent and remove the calculus ureteroscopically as an elective procedure once she has fully recovered from COVID. However, as long as her pain is reasonably well controlled, I will suggest a course of medical expulsion therapy. Time with Patient: Greater than 30
[2022-12-09] MEDS: TAMSULOSIN 0.4 MG CAP.ER.24H PO SCH (17:34)
[2022-12-09] MEDS: ONDANSETRON 4 MG/2 ML VIAL IVP PRN (21:40)
[2022-12-09] MEDS: MORPHINE SULFATE 2 MG/ML SYRINGE IVP PRN (21:41)
[2022-12-10] MEDS: MORPHINE SULFATE 2 MG/ML SYRINGE IVP PRN ×2 (02:24→06:23)
[2022-12-10] MEDS: SODIUM CHLORIDE 0.9% 1,000 ML IV SCH ×3 (06:23→20:13)
[2022-12-10] MEDS: ACETAMINOPHEN TAB 325 MG TAB PO PRN (08:20)
[2022-12-10] MEDS: TAMSULOSIN 0.4 MG CAP.ER.24H PO SCH (08:22)
[2022-12-10] MEDS: ENOXAPARIN 40 MG/0.4 ML SYRINGE SQ SCH (08:22)
[2022-12-10] MEDS: LORATADINE 10 MG TAB PO SCH (08:22)
[2022-12-10] MEDS: PRAVASTATIN SODIUM 20 MG TAB PO SCH (08:22)
[2022-12-10] MEDS: SERTRALINE 100 MG TAB PO SCH (08:22)
[2022-12-10] MEDS: KETOROLAC 15 MG/ML 1 ML VIAL IVP PRN (09:30)
--- NOTE | 2022-12-10 11:37 | P.PN ---
Subjective Progress Note Date: 12/10/22 Pt says that her pain is worse today. Gen: awake, alert HEENT: normocephalic, atraumatic, good hearing acuity, moist mucous membranes Resp: good air exchange, breathing comfortably with no accessory muscle use CVS: good distal perfusion x 4, GI: soft, NTTP, ND : no SPT, no CVAT, cheng catheter not present MSK: no pitting edema, no clubbing Neuro: non-focal, moving all extremities Psych: cooperative, euthymic mood Hospital Course: Patient is a 62 year old F with PMH of dyslipidemia, seasonal ALLERGIES, depression presents the ED for flank pain. Patient reports hematuria that started the day prior to admission. She reports waking up with excruciating left flank pain, constant, throbbing, radiating to the left groin, 10/10 in severity. She reports nausea and vomting. Also reports shes been dealing with a viral illness for the past week consistent of dry cough, nasal congesion and malaise. Her BP was noted to be elevated at 211/93. Vital signs otherwise stable. CBC was unremarkable. CMP showed BUN of 30, glucose 142. Actiq acid was 2.6. Influenza, RSV negative. COVID-[address] AP showed mild left hydronephrosis secondary to obstructing 4 mm calculus in the proximal left ureter with bilateral nonobstructing renal calculi, cholelithiasis and diverticulosis. Patient is admitted under observation status for further management of symptoms. Assessment/Plan: Vitals: Afebrile, 148/75, heart rate 85, 93% on room air Labs: Urine culture growing gram-negative bacilli Images: No additional images today to review Consultants: Urology consult recommends medical management of stone Obstructing ureteral stone with mild left hydronephrosis Lactic acidosis -toradol PRN for pain -morphine PRN for pain, add [place] when necessary for pain -urology consult is appreciated Prerenal azotemia -IVF COVID-19, asymptomatic Pt is full code Objective - Vital Signs Vital signs: Vital Signs Temp 99.0 F 12/10/22 08:00 Pulse 85 12/10/22 08:00 Resp 18 12/10/22 08:00 BP 148/75 12/10/22 08:00 Pulse Ox 93 L 12/10/22 08:00 FiO2 Intake & Output 12/09/22 12/10/22 12/10/22 18:59 06:59 18:59 Intake Total 59 Output Total 900 Balance 59 -900 Intake: Oral 59 Output: Urine 900 Other: Voiding Method Toilet Toilet Toilet # Voids 1 1 - Labs CBC & Chem 7: 12/08/22 11:20 12/09/22 06:01 Labs: Microbiology - Last 24 Hours (Table) 12/08/22 17:53 Urine Culture - Preliminary Urine,Voided Gram Neg Bacilli
[2022-12-10] MEDS: HYDROcodone/APAP 5-325MG 1 EACH TAB PO PRN ×2 (12:34→22:43)
--- NOTE | 2022-12-10 16:02 | P.PN ---
Subjective Progress Note Date: 12/10/22 Principal diagnosis: Left ureteral calculus The patient presented with left renal colic due to a 4 mm left proximal ureteral calculus. This morning, she reported increased pain, predominantly across her lower back. She also reports increased urinary frequency and urgency. Objective - Vital Signs Vital signs: Vital Signs Temp 99.0 F 12/10/22 08:00 Pulse 85 12/10/22 08:00 Resp 18 12/10/22 08:00 BP 148/75 12/10/22 08:00 Pulse Ox 93 L 12/10/22 08:00 FiO2 Intake & Output 12/09/22 12/10/22 12/10/22 18:59 06:59 18:59 Intake Total 59 Output Total 900 Balance 59 -900 Intake: Oral 59 Output: Urine 900 Other: Voiding Method Toilet Toilet Toilet # Voids 1 1 - Constitutional General appearance: Present: average body habitus, no acute distress - Psychiatric Psychiatric: Present: A&O x's 3 - Labs CBC & Chem 7: 12/08/22 11:20 12/09/22 06:01 Labs: Microbiology - Last 24 Hours (Table) 12/08/22 17:53 Urine Culture - Preliminary Urine,Voided Gram Neg Bacilli Assessment and Plan (1) Bilateral nephrolithiasis Current Visit: Yes Status: Acute Code(s): N20.0 - CALCULUS OF KIDNEY SNOMED Code(s): 63606248 (2) Calculus of ureter Current Visit: Yes Status: Acute Code(s): N20.1 - CALCULUS OF URETER SNOMED Code(s): 06503366 (3) Hydronephrosis with renal and ureteral calculous obstruction Current Visit: Yes Status: Acute Code(s): N13.2 - HYDRONEPHROSIS WITH RENAL AND URETERAL CALCULOUS OBSTRUCTION SNOMED Code(s): 445472354 Plan: The patient is admitted with a 4 mm left proximal ureteral calculus. She has tested positive for COVID. She has chosen to proceed with medical expulsion therapy rather than left ureteral stent placement. The fact that she has developed irritative voiding symptoms (see urinary frequency and urgency) suggest that the calculus may have migrated to the distal ureter. Will continue medical expulsion therapy.
[2022-12-11] MEDS: ACETAMINOPHEN TAB 325 MG TAB PO PRN (00:44)
[2022-12-11] MEDS: SODIUM CHLORIDE 0.9% 1,000 ML IV SCH ×3 (05:01→20:16)
[2022-12-11] MEDS: HYDROcodone/APAP 5-325MG 1 EACH TAB PO PRN ×4 (06:33→20:15)
[2022-12-11] MEDS: LORATADINE 10 MG TAB PO SCH (07:51)
[2022-12-11] MEDS: SERTRALINE 100 MG TAB PO SCH (07:51)
[2022-12-11] MEDS: ENOXAPARIN 40 MG/0.4 ML SYRINGE SQ SCH (07:51)
[2022-12-11] MEDS: PRAVASTATIN SODIUM 20 MG TAB PO SCH (07:52)
[2022-12-11] MEDS: TAMSULOSIN 0.4 MG CAP.ER.24H PO SCH (07:52)
--- NOTE | 2022-12-11 10:34 | P.PN ---
Subjective Progress Note Date: 12/11/22 Pt says that her pain is much better today. I will bit of nausea this morning, but is able tolerate a diet. Gen: awake, alert HEENT: normocephalic, atraumatic, good hearing acuity, moist mucous membranes Resp: good air exchange, breathing comfortably with no accessory muscle use CVS: good distal perfusion x 4, GI: soft, NTTP, ND : no SPT, no CVAT, cheng catheter not present MSK: no pitting edema, no clubbing Neuro: non-focal, moving all extremities Psych: cooperative, euthymic mood Hospital Course: Patient is a 62 year old F with PMH of dyslipidemia, seasonal ALLERGIES, depression presents the ED for flank pain. Patient reports hematuria that started the day prior to admission. She reports waking up with excruciating left flank pain, constant, throbbing, radiating to the left groin, 10/10 in severity. She reports nausea and vomting. Also reports shes been dealing with a viral illness for the past week consistent of dry cough, nasal congesion and malaise. Her BP was noted to be elevated at 211/93. Vital signs otherwise stable. CBC was unremarkable. CMP showed BUN of 30, glucose 142. Actiq acid was 2.6. Influenza, RSV negative. COVID-[address] AP showed mild left hydronephrosis secondary to obstructing 4 mm calculus in the proximal left ureter with bilateral nonobstructing renal calculi, cholelithiasis and diverticulosis. Patient is admitted under observation status for further management of symptoms. Assessment/Plan: Vitals: Afebrile, 135/76, heart rate 76, 94% on room air Labs: Urine culture growing E. coli, pansensitive Images: No additional images today to review Consultants: Urology consult recommends medical management of stone Obstructing ureteral stone with mild left hydronephrosis Pyelonephritis Lactic acidosis -toradol PRN for pain -morphine PRN for pain, add [place] when necessary for pain -urology consult is appreciated -Continue ceftriaxone 1 g every 24 hours Prerenal azotemia -IVF COVID-19, asymptomatic Pt is full code Objective - Vital Signs Vital signs: Vital Signs Temp 98.1 F 12/11/22 02:45 Pulse 76 12/11/22 08:00 Resp 15 12/11/22 08:00 BP 135/76 12/11/22 02:45 Pulse Ox 94 L 12/11/22 02:45 FiO2 Intake & Output 12/10/22 12/11/22 12/11/22 18:59 06:59 18:59 Output Total 600 Balance -600 Output: Urine 600 Other: Voiding Method Toilet Toilet Toilet # Voids 1 3 3 - Labs CBC & Chem 7: 12/08/22 11:20 12/09/22 06:01 Labs: Microbiology - Last 24 Hours (Table) 12/08/22 17:53 Urine Culture - Final Urine,Voided Escherichia coli
--- NOTE | 2022-12-11 13:11 | CDI ---
Documentation Clarification Form Date: 12/11/2022 01:07:45 PM From: Ayana Quick RN, CCDS Admit Date: 12/09/2022 12:14:00 PM Patient Name: Serenity Burr Visit Number: [id number] Discharge Date: ATTENTION: The Clinical Documentation Specialists (CDI) and [facility] Coding Staff appreciate your assistance in clarifying documentation. Please respond to the clarification below the line at the bottom and electronically sign. The CDI & [facility] Coding staff will review the response and follow-up if needed. Please note: Queries are made part of the Legal Health Record. If you have any questions, please contact the author of this message via ITS. Dr. Gee Isaacs Acute hypoxic respiratory failure secondary to COVID-19 pneumonia in the setting of hypotension, elevated troponin and severe bradycardia is documented in the H/P ON 12/08/2022 which may lack sufficient clinical evidence/support in the medical record. Additional clarification is requested. History/Risk Factors: No Reported History Clinical Indicators: 62-year-old female reports hematuria that started the day prior to admission. She reports waking up with excruciating left flank pain. CT AP showed mild left hydronephrosis secondary to obstructing 4 mm calculus in the proximal left ureter with bilateral nonobstructing renal calculi, cholelithiasis and diverticulosis. COVID-19, asymptomatic. 12/08 VS: 211/93 62 18 98.5 98% RA, 185/74 70 18 100 RA, 153/79 82 16 98.1 97% RA, 12/08 Labs: WBC 9.2, BUN 30 Lactic acid 2.6 UA: Large bld, Large Esterase; PRO-CoV-2 Detected 12/08 KUB: Small possible bilateral renal calculi 12/08 CT Abd/pelvic: Mild left hydronephrosis secondary obstructing 4 mm calculus in the proximal left ureter. Treatment: .9NS @130 ML/HR Flomax 0.4 MG PO Daily Toradol 15 MG IV Q6HRS PRN Morphing 2 GM IVP Q4HR/PRN Rocephin 1 GM IVPB Q 24 HRS 12/10 Please clarify if Acute hypoxic respiratory failure secondary to COVID-19 pneumonia in the setting of hypotension, elevated troponin and severe bradycardia is a valid diagnosis? [ ] Yes, Acute hypoxic respiratory failure secondary to COVID-19 pneumonia in the setting of hypotension, elevated troponin and severe bradycardia is present as evidence by (additional clinical support): [ x ] No, Acute hypoxic respiratory failure secondary to COVID-19 pneumonia in the setting of hypotension, elevated troponin and severe bradycardia is ruled out. [ ] Other (please specify diagnosis) [ ] Unable to determine (Template Last Revised: June 2020) [ x ] No, Acute hypoxic respiratory failure secondary to COVID-19 pneumonia in the setting of hypotension, elevated troponin and severe bradycardia is ruled out. CELINAD
[2022-12-11] MEDS ORDERED: bisacodyL 10 MG SUPP RECTAL PRN (17:29)
[2022-12-11] MEDS: polyethylene glycoL 3350 17 GM POWD.PACK PO SCH (17:53)
[2022-12-11] MEDS: SENNOSIDES-DOCUSATE SODIUM 1 EACH TAB PO SCH (17:54)
[2022-12-12] MEDS: HYDROcodone/APAP 5-325MG 1 EACH TAB PO PRN (01:55)
[2022-12-12] MEDS: SODIUM CHLORIDE 0.9% 1,000 ML IV SCH ×3 (06:39→17:46)
[2022-12-12] MEDS: LORATADINE 10 MG TAB PO SCH (10:26)
[2022-12-12] MEDS: PRAVASTATIN SODIUM 20 MG TAB PO SCH (10:26)
[2022-12-12] MEDS: ENOXAPARIN 40 MG/0.4 ML SYRINGE SQ SCH (10:26)
[2022-12-12] MEDS: SENNOSIDES-DOCUSATE SODIUM 1 EACH TAB PO SCH ×2 (10:26→20:08)
[2022-12-12] MEDS: polyethylene glycoL 3350 17 GM POWD.PACK PO SCH (10:26)
[2022-12-12] MEDS: TAMSULOSIN 0.4 MG CAP.ER.24H PO SCH (10:26)
[2022-12-12] MEDS: SERTRALINE 100 MG TAB PO SCH (10:26)
[2022-12-12] MEDS: ONDANSETRON 4 MG/2 ML VIAL IVP PRN (10:55)
[2022-12-12] MEDS: KETOROLAC 15 MG/ML 1 ML VIAL IVP PRN ×2 (11:12→18:18)
--- NOTE | 2022-12-12 13:34 | P.PN ---
Subjective Progress Note Date: 12/12/22 Pt says that her pain is worse today. I will bit of nausea this morning, but is able tolerate a diet. Gen: awake, alert HEENT: normocephalic, atraumatic, good hearing acuity, moist mucous membranes Resp: good air exchange, breathing comfortably with no accessory muscle use CVS: good distal perfusion x 4, GI: soft, NTTP, ND : no SPT, no CVAT, cheng catheter not present MSK: no pitting edema, no clubbing Neuro: non-focal, moving all extremities Psych: cooperative, euthymic mood Hospital Course: Patient is a 62 year old F with PMH of dyslipidemia, seasonal ALLERGIES, depression presents the ED for flank pain. Patient reports hematuria that started the day prior to admission. She reports waking up with excruciating left flank pain, constant, throbbing, radiating to the left groin, 10/10 in severity. She reports nausea and vomting. Also reports shes been dealing with a viral illness for the past week consistent of dry cough, nasal congesion and malaise. Her BP was noted to be elevated at 211/93. Vital signs otherwise stable. CBC was unremarkable. CMP showed BUN of 30, glucose 142. Actiq acid was 2.6. Influenza, RSV negative. COVID-[address] AP showed mild left hydronephrosis secondary to obstructing 4 mm calculus in the proximal left ureter with bilateral nonobstructing renal calculi, cholelithiasis and diverticulosis. Patient is admitted under observation status for further management of symptoms. Assessment/Plan: Vitals: Afebrile, 135/76, heart rate 76, 94% on room air Labs: Urine culture growing E. coli, pansensitive Images: No additional images today to review Consultants: Urology consult recommends medical management of stone Obstructing ureteral stone with mild left hydronephrosis Pyelonephritis Lactic acidosis -toradol PRN for pain -morphine PRN for pain, add [place] when necessary for pain -urology consult is appreciated -Continue ceftriaxone 1 g every 24 hours Prerenal azotemia -IVF COVID-19, asymptomatic Pt is full code Objective - Vital Signs Vital signs: Vital Signs Temp 98.1 F 12/12/22 08:00 Pulse 75 12/12/22 08:00 Resp 14 12/12/22 08:00 BP 155/82 12/12/22 08:00 Pulse Ox 97 12/12/22 08:00 FiO2 Intake & Output 12/11/22 12/12/22 12/12/22 18:59 06:59 18:59 Output Total 600 Balance -600 Output: Urine 600 Other: Voiding Method Toilet Toilet # Voids 2 2 - Labs CBC & Chem 7: 12/08/22 11:20 12/09/22 06:01 Labs: Microbiology - Last 24 Hours (Table) 12/08/22 17:53 Urine Culture - Final Urine,Voided Escherichia coli
--- NOTE | 2022-12-12 15:31 | P.PN ---
Subjective Progress Note Date: 12/12/22 Principal diagnosis: Left ureteral calculus The patient presented with left renal colic due to a 4 mm left proximal ureteral calculus. This morning, she reported increased pain compared to yesterday, but tolerable. Her urinary frequency and urgency are improved. Objective - Vital Signs Vital signs: Vital Signs Temp 98.1 F 12/12/22 08:00 Pulse 75 12/12/22 08:00 Resp 14 12/12/22 08:00 BP 155/82 12/12/22 08:00 Pulse Ox 97 12/12/22 08:00 FiO2 Intake & Output 12/11/22 12/12/22 12/12/22 18:59 06:59 18:59 Output Total 600 Balance -600 Output: Urine 600 Other: Voiding Method Toilet Toilet # Voids 2 2 - Constitutional General appearance: Present: average body habitus, no acute distress - Psychiatric Psychiatric: Present: A&O x's 3 - Labs CBC & Chem 7: 12/08/22 11:20 12/09/22 06:01 Assessment and Plan (1) Bilateral nephrolithiasis Current Visit: Yes Status: Acute Code(s): N20.0 - CALCULUS OF KIDNEY SNOMED Code(s): 73016037 (2) Calculus of ureter Current Visit: Yes Status: Acute Code(s): N20.1 - CALCULUS OF URETER SNOMED Code(s): 10009514 (3) Hydronephrosis with renal and ureteral calculous obstruction Current Visit: Yes Status: Acute Code(s): N13.2 - HYDRONEPHROSIS WITH RENAL AND URETERAL CALCULOUS OBSTRUCTION SNOMED Code(s): 853749576 Plan: The patient is admitted with a 4 mm left proximal ureteral calculus. She has tested positive for COVID. She has chosen to proceed with medical expulsion therapy rather than left ureteral stent placement. Although her pain is somewhat increased today, she feels it is tolerable and declines stent placement. Will continue medical expulsion therapy.
[2022-12-13] MEDS: KETOROLAC 15 MG/ML 1 ML VIAL IVP PRN ×2 (00:53→06:50)
[2022-12-13] MEDS: ACETAMINOPHEN TAB 325 MG TAB PO PRN ×2 (01:00→06:50)
[2022-12-13] MEDS: SODIUM CHLORIDE 0.9% 1,000 ML IV SCH (04:51)
[2022-12-13 07:58] VITALS: BP 187/77; PULSE 67; RESP 16; TEMP 98.3
[2022-12-13] MEDS: PRAVASTATIN SODIUM 20 MG TAB PO SCH (09:08)
[2022-12-13] MEDS: LORATADINE 10 MG TAB PO SCH (09:08)
[2022-12-13] MEDS: SERTRALINE 100 MG TAB PO SCH (09:08)
[2022-12-13] MEDS: polyethylene glycoL 3350 17 GM POWD.PACK PO SCH (09:08)
[2022-12-13] MEDS: TAMSULOSIN 0.4 MG CAP.ER.24H PO SCH (09:08)
[2022-12-13] MEDS: SENNOSIDES-DOCUSATE SODIUM 1 EACH TAB PO SCH (09:08)
[2022-12-13] MEDS: ENOXAPARIN 40 MG/0.4 ML SYRINGE SQ SCH (09:09)
--- NOTE | 2022-12-13 11:37 | P.PN ---
Subjective Progress Note Date: 12/13/22 Principal diagnosis: Left ureteral calculus The patient presented with left renal colic due to a 4 mm left proximal ureteral calculus. She continues to experience mild to moderate pain, which is controlled with Toradol. Her urine is being strained, and she has not passed the calculus. Objective - Vital Signs Vital signs: Vital Signs Temp 98.1 F 12/13/22 01:07 Pulse 72 12/13/22 01:07 Resp 18 12/13/22 01:07 BP 182/81 12/13/22 01:07 Pulse Ox 95 12/13/22 01:07 FiO2 Intake & Output 12/12/22 12/12/22 12/13/22 06:59 18:59 06:59 Other: Voiding Method Toilet Toilet Toilet # Voids 2 1 - Constitutional General appearance: Present: average body habitus, no acute distress - Gastrointestinal Gastrointestinal Comment(s): Soft, non-tender, non-distended. - Psychiatric Psychiatric: Present: A&O x's 3 - Labs CBC & Chem 7: 12/08/22 11:20 12/09/22 06:01 Assessment and Plan (1) Bilateral nephrolithiasis Current Visit: Yes Status: Acute Code(s): N20.0 - CALCULUS OF KIDNEY SNOMED Code(s): 41208049 (2) Calculus of ureter Current Visit: Yes Status: Acute Code(s): N20.1 - CALCULUS OF URETER SNOMED Code(s): 86046970 (3) Hydronephrosis with renal and ureteral calculous obstruction Current Visit: Yes Status: Acute Code(s): N13.2 - HYDRONEPHROSIS WITH RENAL AND URETERAL CALCULOUS OBSTRUCTION SNOMED Code(s): 823477401 Plan: The patient is admitted with a 4 mm left proximal ureteral calculus. She has tested positive for COVID. She has chosen to proceed with medical expulsion therapy rather than left ureteral stent placement. She is being discharged home today and will continue medical expulsion therapy. I have sent scripts for Toradol and tamsulosin. She will follow up with me in 2 weeks, sooner if needed. Please notify me if I can be of any further assistance.
--- NOTE | 2022-12-13 12:18 | P.DS ---
Providers Date of admission: 12/09/22 12:14 Expected date of discharge: 12/13/22 Attending physician: Mary Tinsley DO Consults: 12/08/22 16:46 Consult Physician Routine Consulting Provider: Ignacio Castle Consult Reason/Comments: Obstructing ureteral stone with hydronephrosis Do you want consulting provider notified?: Yes Primary care physician: L[facility]pez [facility] Course: Obstructing ureteral stone with mild left hydronephrosis Pyelonephritis Lactic acidosis Prerenal azotemia COVID-19, asymptomatic Hospital Course: Patient is a 62 year old F with PMH of dyslipidemia, seasonal ALLERGIES, depression presents the ED for flank pain. Patient reports hematuria that started the day prior to admission. She reports waking up with excruciating left flank pain, constant, throbbing, radiating to the left groin, 10/10 in severity. She reports nausea and vomting. Also reports shes been dealing with a viral illness for the past week consistent of dry cough, nasal congesion and malaise. Her BP was noted to be elevated at 211/93. Vital signs otherwise stable. CBC was unremarkable. CMP showed BUN of 30, glucose 142. Actiq acid was 2.6. Influenza, RSV negative. COVID-[address] AP showed mild left hydronephrosis secondary to obstructing 4 mm calculus in the proximal left ureter with bilateral nonobstructing renal calculi, cholelithiasis and diverticulosis. Patient is admitted under observation status for further management of symptoms. Pt seen by urology, and had refused NUS placement due to her covid status. She was managed medically with pain and nausea control with flomax for medical expulsion therapy. Pain and nausea was much better on day of discharge and patient was sent home with urology f/u in 2 weeks, as well as 5 additional days of abx to complete 10 day course. I spent 34 minutes coordinaitng this discharge on 12/13 Gen: awake, alert HEENT: normocephalic, atraumatic, good hearing acuity, moist mucous membranes Resp: good air exchange, breathing comfortably with no accessory muscle use CVS: good distal perfusion x 4, GI: soft, NTTP, ND : no SPT, no CVAT, cheng catheter not present MSK: no pitting edema, no clubbing Neuro: non-focal, moving all extremities Psych: cooperative, euthymic mood Patient Condition at Discharge: Good Plan - Discharge Summary Discharge Rx Participant: Yes New Discharge Prescriptions: New Ketorolac [Toradol] 10 mg PO Q6HR PRN #10 tab PRN Reason: Pain Tamsulosin [Flomax] 0.4 mg PO DAILY #30 cap Cefdinir [Omnicef] 300 mg PO Q12HR #10 capsule Acetaminophen Tab [Tylenol] 650 mg PO Q6HR PRN tab PRN Reason: Mild Pain Or Fever > 100.5 Continue Pravastatin Sodium [Pravachol] 20 mg PO DAILY Cetirizine HCl [Zyrtec] 10 mg PO DAILY Sertraline [Zoloft] 50 mg PO DAILY Discharge Medication List Pravastatin Sodium [Pravachol] 20 mg PO DAILY 05/23/19 [History] Cetirizine HCl [Zyrtec] 10 mg PO DAILY 12/08/22 [History] Sertraline [Zoloft] 50 mg PO DAILY 12/08/22 [History] Acetaminophen Tab [Tylenol] 650 mg PO Q6HR PRN tab 12/13/22 [Rx] Cefdinir [Omnicef] 300 mg PO Q12HR #10 capsule 12/13/22 [Rx] Ketorolac [Toradol] 10 mg PO Q6HR PRN #10 tab 12/13/22 [Rx] Tamsulosin [Flomax] 0.4 mg PO DAILY #30 cap 12/13/22 [Rx] Follow up Appointment(s)/Referral(s): Jarod Shaffer MD [STAFF PHYSICIAN] - 2 Weeks López Hamm MD [Primary Care Provider] - 1-2 days Discharge Disposition: HOME SELF-CARE
== END 2022-12-13 13:25 | disposition home or self-care (01) | DRG 689 ==
LOC: EC 10:45 → 6NMEDSUR 15:02 → OBSVTOIN 12-09 12:14
PROVIDERS: ADMIT Internal Medicine; ATTEND Internal Medicine
DX: N13.6 Pyonephrosis (principal); U07.1 COVID-19; E87.20 Acidosis, unspecified; K80.10 Calculus of gallbladder with chronic cholecystitis without obstruction; R31.9 Hematuria, unspecified; Z20.822 Contact with and (suspected) exposure to COVID-19; E78.5 Hyperlipidemia, unspecified; J30.2 Other seasonal allergic rhinitis; M19.90 Unspecified osteoarthritis, unspecified site; Z79.899 Other long term (current) drug therapy; Z87.442 Personal history of urinary calculi
CPT/HCPCS: 36415; 74018; 74176; 80048; 80053; 81001; 83605; 83690; 85025; 87077; 87086; 87186; 87636; 96361; 96374; 96376; 99285

== ENCOUNTER → 2023-01-13 | Outpatient (CLI) | payer BC ==
--- NOTE | 2023-01-13 09:07 | CT ---
EXAMINATION TYPE: CT abdomen pelvis wo con CT DLP: 609 mGycm, Automated exposure control for dose reduction was used. DATE OF EXAM: 01/13/2023 8:39 AM COMPARISON: CT abdomen pelvis most recent from 12/08/2022 CLINICAL INDICATION:Female, 62 years old with history of N13.2 HYDRONEPHROSIS; [id number] TECHNIQUE: Axial CT of the abdomen and pelvis. Sagittal and coronal reformats were created on a [employer] workstation. Contrast used: mL of , (none if empty) Oral contrast used: without Oral Contrast (none if empty) FINDINGS: LOWER CHEST: Unremarkable ABDOMEN LIVER: Unremarkable GALLBLADDER AND BILE DUCTS: Layering increased densities within the lumen consistent with gallstones are present. PANCREAS: Unremarkable. SPLEEN: Unremarkable. ADRENAL GLANDS: Unremarkable. KIDNEYS AND URETERS: High density near the renal pyramids likely representing nonobstructing calculi measuring up to 3 mm bilaterally. No evidence of hydronephrosis or obstructive renal calculus. The ur eters are unremarkable. PELVIS BLADDER: Unremarkable REPRODUCTIVE: Unremarkable. ABDOMEN & PELVIS STOMACH AND BOWEL: No evidence of bowel obstruction. Moderate amount stool throughout the colon. PERITONEUM/RETROPERITONEUM: No evidence of pneumoperitoneum or free fluid. VASCULATURE: No evidence of aortic aneurysm. MUSCULOSKELETAL: No acute osseous abnormalities LYMPH NODES: No gross evidence for lymphadenopathy. SOFT TISSUE/ABDOMINAL WALL: Fat-containing umbilical hernia. IMPRESSION: 1. Resolution of prior hydronephrosis. No evidence for acute process to explain the patient's pain. N o obstructive uropathy. Obstructing bilateral renal calculi. 2. Cholelithiasis. 3. Fat-containing umbilical hernia..
== END | disposition home or self-care (01) ==
LOC: RADCTMAIN 08:24
PROVIDERS: ATTEND Urology
DX: N13.2 Hydronephrosis with renal and ureteral calculous obstruction (principal); K80.20 Calculus of gallbladder without cholecystitis without obstruction; K42.9 Umbilical hernia without obstruction or gangrene
CPT/HCPCS: 74176

== ENCOUNTER → 2024-06-09 | Outpatient (CLI) | payer BC, MEDICARE ==
--- NOTE | 2024-06-13 08:18 | PE ---
EXAMINATION TYPE: PET CT fusion skull to thigh DATE OF EXAM: 06/09/2024 CLINICAL INDICATION:Female, 63 years old with history of R91.8 ABN FINDING OF LUNG FIELD; TECHNIQUE: Following the intravenous administration of 9.0 mCi of F-18 FDG, whole body images are p erformed from the skull base to the Mid thigh. Images are reviewed on the computer in the coronal, a xial, and sagittal planes. Reconstructed rotating images are created on independent workstation and reviewed on the computer. A non-contrast CT is performed in conjunction with the PET scan. Glucose level 94 mg/dL CT DLP: 1082 mGycm, Automated exposure control for dose reduction was used. COMPARISON: CT 01/13/2023, 05/12/2024, PET/CT None, MRI: None FINDINGS: Mediastinal SUV mean is 1.8. Hepatic parenchyma SUV mean is 2.4. SKULL BASE AND NECK: No suspicious radiotracer activity. CHEST, MEDIASTINUM, AND HILAR REGION: Right upper lobe somewhat tubular morphology with branching opacity max SUV 3.4. Overall this tubular -like area measures up to 4.0 x 2.4 cm. ABDOMEN AND PELVIS: No suspicious radiotracer activity. MUSCULOSKELETAL STRUCTURES: No suspicious radiotracer activity. OTHER CT: The heart is mildly enlarged for size. Cholelithiasis. Nonobstructing 2 mm left left renal calculi. Severe atherosclerosis of the arterial vasculature. Normal appendix. Chronic diverticulosis. IMPRESSION: Somewhat tubular right upper lobe opacity differential includes infectious/inflammatory processes suc h as allergic bronchopulmonary aspergillosis given its tubular morphology. Continued surveillance rec ommended. [facility], , 06/13/2024 8:16 AM
== END | disposition home or self-care (01) ==
LOC: RADPETMAIN 06:36
PROVIDERS: ATTEND Family Medicine
DX: R91.8 Other nonspecific abnormal finding of lung field (principal)
CPT/HCPCS: 78815; A9552

== ENCOUNTER → 2024-10-10 | Outpatient (CLI) | payer BC, MEDICARE ==
[2024-10-10 10:11] LABS: African American GFR (CKD) >90 (>60 ml/min/1.73 sqM); Blood Urea Nitrogen 26 mg/dL (7-17); Non-African American GFR(CKD) >90 (>60 ml/min/1.73 sqM)
--- NOTE | 2024-10-10 10:56 | CT ---
EXAMINATION TYPE: CT chest w con DATE OF EXAM: 10/10/2024 10:41 AM COMPARISON: 06/09/2024 PET/CT, 05/12/2024 CT. CLINICAL INDICATION: Female, 64 years old with history of R91.8 ABNORMAL LUNG FIELD; PHH, abnormal in fection of lung TECHNIQUE: Multiple axial images were obtained through the chest. Sagittal and coronal reformats were created for review. MIP was performed on a separate workstation. Contrast used:100 mL of Isovue 300 with IV Contrast (None if empty) Oral contrast used: (None if empty) CT DLP: 528 mGycm, Automated exposure control for dose reduction was used. FINDINGS: LUNGS/ PLEURA: Similar tubular airspace opacity in the right upper lung. It is not significantly schroeder ged from prior. There is mild centrilobular emphysema changes. No new or enlarging pulmonary nodules. No other areas of airspace consolidation. No additional focal consolidation, pneumothorax or pleural effusion. AIRWAY: Patent and unremarkable. HEART: Size within normal limits. No significant coronary artery calcifications. MEDIASTINUM: No gross evidence of adenopathy. VASCULATURE: Atherosclerotic calcifications are present throughout the aorta and its branches. MUSCULOSKELETAL: No acute osseous abnormalities SOFT TISSUES/LYMPH NODES: Unremarkable. LOWER NECK: No significant findings. UPPER ABDOMEN: No significant findings. IMPRESSION: Stable tubular right upper lobe opacity differential includes infectious/inflammatory processes such as allergic bronchopulmonary aspergillosis given its tubular morphology. Consider bronchoscopy with t issue sampling. Follow-up imaging 6 months recommended. Findings not significantly changed from 025. [facility], , 10/10/2024 10:53 AM
== END | disposition home or self-care (01) ==
LOC: RADCTMAIN 09:36
PROVIDERS: ATTEND Internal Medicine Critical Care Medicine
DX: R91.8 Other nonspecific abnormal finding of lung field (principal)
CPT/HCPCS: 82565; 84520; 71260; 36415; Q9967